=== PATIENT | female | born 1940 | race Caucasian/White ===

== ENCOUNTER 2017-02-08 00:57 | Inpatient (IN) | payer OTHER, MEDICAID ==
[2017-02-08 03:00] VITALS: BP 126/86
[2017-02-08] MEDS: D5-0.9%NS 1,000 ML IV SCH ×2 (07:08→17:24)
[2017-02-08] MEDS: INSULIN ASPART SLIDING SCALE 100 UNITS/ML UNIT SUBQ SCH ×2 (07:11→13:13)
[2017-02-08 07:28] LABS: ALKALINE PHOSPHATASE 434 U/L (34-104); ANION GAP 9.8 (7.0-16.0); BILIRUBIN,TOTAL 1.2 mg/dL (0.3-1.0); BUN - UREA NITROGEN 15 mg/dL (7-25); CARBON DIOXIDE 26.5 mEq/L (21.0-31.0); CHLORIDE 105 mEq/L (98-107); CREATININE - SERUM 0.6 mg/dL (0.6-1.2); GLUCOSE 133 mg/dL (70-105); POTASSIUM SERUM 3.3 mEq/L (3.5-5.1); SGOT 154 U/L (13-39); SGPT/ALT 258 U/L (7-52); SODIUM SERUM 138 mEq/L (136-145)
[2017-02-08 07:42] LABS: % BASOPHILS 0.2 % (0.0-2.0); % EOSINOPHILS 0.4 % (0.0-5.0); % LYMPHOCYTES 9.6 % (20.0-50.0); % MONOCYTES 11.4 % (2.0-10.0); % NEUTROPHILS 78.4 % (40.0-80.0); HEMATOCRIT 42.6 % (35.0-45.0); HEMOGLOBIN 14.5 gm/dL (11.7-16.1); MEAN CELL VOLUME 89.5 fl (81-100); MEAN CORPUSCULAR HEMOGLOBIN 30.4 pg (27.0-31.0); MEAN CORPUSCULAR HGB CONC 33.9 pg (28.0-36.0); MEAN PLATELET VOLUME 10.1 fl; NEUTROPHILE ABSOLUTE 13.1 Th/cmm (1.8-8.0); PLATELET COUNT 208 Th/cmm (150-400); RED BLOOD COUNT 4.76 Mil/cmm (3.80-5.20); RED CELL DISTRIBUTION WIDTH 12.6 % (11.5-20.0)
[2017-02-08 08:14] LABS: WHITE BLOOD COUNT 16.7 Th/cmm (4.8-10.8)
[2017-02-08] MEDS: Morphine Sulfate 2 mg/mL 1mL Syr IVP PRN ×2 (12:20→17:21)
[2017-02-08 12:45] LABS: URINE BILIRUBIN NEGATIVE (NEGATIVE); URINE BLOOD SMALL (NEGATIVE); URINE COLOR YELLOW; URINE GLUCOSE (UA) NEGATIVE (NEGATIVE); URINE KETONE 15 mg/dL (NEGATIVE); URINE PROTEIN 30 mg/dL (NEGATIVE); URINE UROBILINOGEN 0.2 E.U./dL (0.2 - 1.0)
[2017-02-08 12:48] LABS: URINE BACTERIA OCCASIONAL /hpf (NONE SEEN); URINE EPITHELIAL CELLS RARE /lpf (FEW); URINE RBC 0-2 /hpf (0-5)
--- NOTE | 2017-02-08 15:05 | General Progress Note ---
Subjective - Review of Systems Service Date: 02/08/17 Events since last encounter: 2 day history of upper abdominal pain and nausea and vomiting' Seen at [place], tests GB stones with dilated CBD LFT and amylase and lipase elevated GI consult noted MRCP in AM explained impression and possible surgery with patient and family pending tests keep strictly NPO Objective - Results Result Diagrams: 02/08/17 06:51 02/08/17 06:51 Recent Labs: Laboratory Last Values WBC 16.7 Th/cmm (4.8-10.8) H 02/08/17 06:51 RBC 4.76 Mil/cmm (3.80-5.20) 02/08/17 06:51 Hgb 14.5 gm/dL (11.7-16.1) 02/08/17 06:51 Hct 42.6 % (35.0-45.0) 02/08/17 06:51 MCV 89.5 fl (81-100) 02/08/17 06:51 MCH 30.4 pg (27.0-31.0) 02/08/17 06:51 MCHC Differential 33.9 pg (28.0-36.0) 02/08/17 06:51 RDW 12.6 % (11.5-20.0) 02/08/17 06:51 Plt Count 208 Th/cmm (150-400) 02/08/17 06:51 MPV 10.1 fl 02/08/17 06:51 Neutrophils % 78.4 % (40.0-80.0) 02/08/17 06:51 Lymphocytes % 9.6 % (20.0-50.0) L 02/08/17 06:51 Monocytes % 11.4 % (2.0-10.0) H 02/08/17 06:51 Eosinophils % 0.4 % (0.0-5.0) 02/08/17 06:51 Basophils % 0.2 % (0.0-2.0) 02/08/17 06:51 ESR 17 mm/hr (0-30) 02/08/17 06:51 Sodium 138 mEq/L (136-145) 02/08/17 06:51 Potassium 3.3 mEq/L (3.5-5.1) L 02/08/17 06:51 Chloride 105 mEq/L (98-107) 02/08/17 06:51 Carbon Dioxide 26.5 mEq/L (21.0-31.0) 02/08/17 06:51 Anion Gap 9.8 (7.0-16.0) 02/08/17 06:51 BUN 15 mg/dL (7-25) 02/08/17 06:51 Creatinine 0.6 mg/dL (0.6-1.2) 02/08/17 06:51 Est GFR ( Amer) TNP 02/08/17 06:51 Est GFR (Non-Af Amer) TNP 02/08/17 06:51 BUN/Creatinine Ratio 25.0 02/08/17 06:51 Glucose 133 mg/dL (70-105) H 02/08/17 06:51 POC Glucose 183 MG/DL (70 - 105) H 02/08/17 12:05 Hemoglobin A1c % 5.2 % (4.0-6.0) 02/08/17 06:51 Calcium 10.0 mg/dL (8.6-10.3) 02/08/17 06:51 Total Bilirubin 1.2 mg/dL (0.3-1.0) H 02/08/17 06:51 AST 154 U/L (13-39) H 02/08/17 06:51 ALT 258 U/L (7-52) H 02/08/17 06:51 Alkaline Phosphatase 434 U/L (34-104) H 02/08/17 06:51 C-Reactive Protein 3.6 mg/dL (0.0-0.9) H 02/08/17 06:51 Total Protein 7.3 gm/dL (6.0-8.3) 02/08/17 06:51 Albumin 3.7 gm/dL (3.7-5.3) 02/08/17 06:51 Globulin 3.6 gm/dL 02/08/17 06:51 Albumin/Globulin Ratio 1.0 (1.0-1.8) 02/08/17 06:51 Urine Source CATH 02/08/17 08:30 Urine Color YELLOW 02/08/17 08:30 Urine Clarity SL. CLOUDY (CLEAR) 02/08/17 08:30 Urine pH 6.0 02/08/17 08:30 Ur Specific [place] (1.005-1.030) 02/08/17 08:30 Urine Protein 30 mg/dL (NEGATIVE) H 02/08/17 08:30 Urine Glucose (UA) NEGATIVE mg/dL (NEGATIVE) 02/08/17 08:30 Urine Ketones 15 mg/dL (NEGATIVE) H 02/08/17 08:30 Urine Blood SMALL (NEGATIVE) H 02/08/17 08:30 Urine Nitrate NEGATIVE (NEGATIVE) 02/08/17 08:30 Urine Bilirubin NEGATIVE (NEGATIVE) 02/08/17 08:30 Urine Urobilinogen 0.2 E.U./dL (0.2 - 1.0) 02/08/17 08:30 Ur Leukocyte Esterase NEGATIVE (NEGATIVE) 02/08/17 08:30 Urine RBC 0-2 /hpf (0-5) 02/08/17 08:30 Urine WBC 6-10 /hpf (0-5) H 02/08/17 08:30 Ur Epithelial Cells RARE /lpf (FEW) 02/08/17 08:30 Urine Bacteria OCCASIONAL /hpf (NONE SEEN) 02/08/17 08:30 - Physical Exam Vitals and I&O: Vital Signs Temp 98.1 F 02/08/17 12:00 Pulse 107 02/08/17 12:00 Resp 18 02/08/17 12:00 BP 161/94 02/08/17 12:00 Pulse Ox 94 02/08/17 12:00 Intake & Output 02/07/17 02/08/17 02/08/17 17:59 06:59 18:59 Intake Total 200 Balance 200 Weight (lbs) Intake: Oral 200 Active Medications: Current Medications Acetaminophen (Tylenol 650mg Supp) 650 mg RC Q6H PRN PRN Reason: Mild Pain/Headache/T above 101 Stop: 04/09/17 06:24 Dextrose/Sodium Chloride (D5-0.9%Ns) 1,000 mls @ 100 mls/hr IV .Q10H AMEENA Stop: 04/09/17 06:29 Last Admin: 02/08/17 07:08 Dose: 100 mls/hr Lorazepam (Ativan) 1 mg IVP Q4H PRN; Protocol PRN Reason: Anxiety/Agitation Stop: 04/09/17 06:24 Morphine Sulfate (Morphine) 2 mg IVP Q4H PRN PRN Reason: Pain (Moderate) Stop: 04/09/17 06:24 Last Admin: 02/08/17 12:20 Dose: 2 mg Morphine Sulfate (Morphine) 4 mg IVP Q4H PRN PRN Reason: Severe Pain Stop: 04/09/17 06:24 Ondansetron HCl (Zofran) 4 mg IVP Q6H PRN PRN Reason: Nausea / Vomiting Stop: 04/09/17 06:24
--- NOTE | 2017-02-08 15:52 | History & Physical ---
CHIEF COMPLAINT: Abdominal pain. HISTORY OF PRESENT ILLNESS: The patient is a 76-year-old female who has been transferred from [facility] ER. The patient presented to the ER for complaint of right upper quadrant and mid epigastric abdominal pain for 2 days. The patient also has nausea and vomiting. PAST MEDICAL HISTORY: Negative. MEDICATIONS: See medication form. PAST SURGICAL HISTORY: Negative. ALLERGIES: No known allergies. SOCIAL HISTORY: No reports of smoking, drinking, or drug use. FAMILY HISTORY: Noncontributory. The patient had a CT done at [facility], which showed distended gallbladder with wall thickening, mild common bile duct dilation. Correlate for clinical signs of cholecystitis. No evidence of appendicitis. No evidence of diverticulitis, bowel obstruction or abscess. Renal sinus cyst and mild bladder wall thickening. PHYSICAL EXAMINATION: VITAL SIGNS ON ADMISSION: Temperature 98.5, pulse 96, blood pressure 126/86, respiratory rate 18, O2 sat 95% on room air. GENERAL: The patient is awake, alert, nontoxic in appearance. HEENT: Normocephalic, atraumatic. Extraocular muscle intact. Oropharynx is clear. NECK: Supple. No thyromegaly. No lymphadenopathy. CARDIOVASCULAR: S1, S2, no murmurs, rubs, gallops. RESPIRATORY: Clear. No wheezes or rhonchi. GASTROINTESTINAL: Soft, tender in the epigastric and right upper quadrant area. Nondistended. Positive bowel sounds. GENITOURINARY: No CVA tenderness. No suprapubic tenderness. BACK: No midline tenderness. EXTREMITIES: Equal pulses bilaterally. No cyanosis or edema. SKIN: Negative. PSYCHIATRIC: Negative. NEUROLOGIC: Cranial nerves 2-12 intact. Extraocular movements are intact. Sensation intact. Motor is intact. Bilateral muscle strength normal. Labs on admission are as follows: Hematology: WBC 16.7, hemoglobin 14.5, hematocrit 42.6 and platelet count 208 with 9% lymphocytes, 11% monocytes. Chemistry: Sodium 138, potassium 3.3, chloride 105, bicarbonate 26, anion gap 9, BUN 15, creatinine 0.6, GFR unavailable, glucose 133, hemoglobin A1c 5.2, calcium is 10, total bilirubin 1.2, AST is 154, ALT 58, alkaline phosphatase 434, total protein 7.3, albumin 3.7, globulin 3.6. Urinalysis shows 30 protein, 15 ketones, small blood, 6-10 wbc, occasional bacteria. MICROBIOLOGY: No new microbiology results. RADIOLOGY: No new radiology results. IMPRESSION: 1. Systemic inflammatory response syndrome. 2. Acute cholecystitis. 3. Possible choledocholithiasis. 4. Leukocytosis. 5. Hypokalemia. 6. Hyperglycemia. 7. Transaminitis. 8. Possible urinary tract infection. PLAN: The patient admitted to Med-Surg Unit at [facility]. GI consultation with Dr. Faustin and associates. General Surgery consultation with Dr. Braun. We will obtain Infectious Disease consultation regarding patient's leukocytosis. We will obtain further labs and consultation as needed. JOB# [id number] MTDTyler
--- NOTE | 2017-02-08 21:48 | Admit Criteria Form ---
Admit Criteria Forms - Admit Criteria Diagnosis: GALLBLADDER OR BILE DUCT INFLAMMATION OR STONE Clinical Indications for Admission to Inpatient Care ( Place 'X' for any and all applicable criteria): Admission is indicated for patients with ANY ONE of the following(1)(2)(3)(4)(5) : [X]I. Acute cholecystitis as indicated by ALL of the following: [X]a) Right upper quadrant pain, mass, or tenderness [X]b) Systemic signs of inflammation indicated by ANY ONE of the following: [ ]i) Fever [ ]ii) C-reactive protein level greater than 10 mg/L (95 nmol/L) [X]iii) White blood cell count greater than 10,000/mm3 (10 x109/L) or less than 4000/mm3 (4 x109/L) [ ]II. Inpatient admission required rather than observation care (Also use Gallbladder or Bile Duct Inflammation or Stone: Observation Care as appropriate) because of ANY ONE of the following: [ ]a) Common bile duct obstruction diagnosed [ ]b) Vomiting that is severe or persistent [ ]c) Severe pain requiring acute inpatient management [ ]d) Signs of intestinal obstruction or peritonitis [A] [ ]e) Severe electrolyte abnormalities requiring inpatient care [ ]f) Absent bowel sounds with complete ileus(8) [ ]g) Hemodynamic instability [ ]h) High fever or infection requiring inpatient admission as indicated by ANY ONE of the following (9): [ ]1) Appropriate outpatient or observation care antimicrobial Treatment. unavailable, not effective, or not feasible [ ]2) Temperature greater than 104.9 degrees F (40.5 degrees C) (oral) [ ]3) Temperature greater than 103.1 degrees F (39.5 degrees C) (oral) or less than 96.8 degrees F (36 degrees C) (rectal) that does not respond to all emergency treatment measures [ ]4) Documented bacteremia [ ]i) IV fluid to replace significant ongoing losses (greater than 3 L/m2 per day) [ ]j) Percutaneous or open drainage (eg, abscess, biliary tract) procedures [ ]k) Immediate inpatient surgery [ ]l) Other condition, treatment or monitoring requiring inpatient admission [ ]III. Acute cholangitis as indicated by ALL of the following(9)(10): [ ]a) Systemic signs of inflammation indicated by ANY ONE of the following: [ ]i) Fever [ ]ii) C-reactive protein level greater than 10 mg/L (95 nmol /L) [ ]iii) White blood cell count greater than 10,000/mm3 (10 x109/L) or less than 4000/mm3 (4 x109/L) [ ]b) Evidence of common bile duct disease indicated by ANY ONE of the following: [ ]i) Total serum bilirubin level greater than or equal to 2 mg/dL (34 micromoles/L) [ ]ii) Liver function test (alkaline phosphatase (ALP), r- glutamyltransferase (GGT), aspartate aminotransferase (AST), or alanine aminotransferase (ALT)) greater than 1.5 times the upper limit of normal[B] [ ]iii) Hepatobiliary imaging showing biliary dilatation or evidence of etiology (eg, stricture, stone, previously placed stent) Extended stay beyond goal length of stay may be needed for (1)(2)): [ ]a) Bacteremia or Hemodynamic instability [ ]b) Cholecystectomy [ ]c) Other surgical procedure(24) [ ]d) Percutaneous or endoscopic ultrasound-guided cholecystostomy The original [facility] [employer] content created by [facility] [employer] has been revised. The portions of the content which have been revised are identified through the use of italic text or in bold, and [facility] has neither reviewed nor approved the modified material. All other unmodified content is copyright [facility]. Please see references footnoted in the original [facility] edition 2016 Admit Criteria Met?: Yes
[2017-02-09] MEDS: Morphine Sulfate 2 mg/mL 1mL Syr IVP PRN ×3 (00:12→21:34)
--- NOTE | 2017-02-09 00:51 | Consultation ---
REASON FOR CONSULT: Abdominal pain, possible cholecystitis, abnormal LFTs. HISTORY OF PRESENT ILLNESS: This is a 76-year-old female without significant past medical history, who presents with complaints of pain in the epigastric and right upper quadrant region for the past several days with associated nausea and vomiting. The patient was initially evaluated at [facility] [place]. The patient at that time was found to have elevation of her LFTs. She also had imaging, underwent ultrasound and CT showing multiple stones in the gallbladder and a distended gallbladder with wall thickening suggestive of cholecystitis. The patient also had ____ of her common bile duct to 7.35 mm. PAST MEDICAL HISTORY: As per HPI. PAST SURGICAL HISTORY: As per HPI. SOCIAL HISTORY: The patient denies any tobacco, alcohol or drugs. FAMILY HISTORY: No family history of GI malignancies. MEDICATIONS: Please see medication reconciliation form. REVIEW OF SYSTEMS: As per HPI. PHYSICAL EXAMINATION: VITAL SIGNS: Temperature is 97.5, pulse 96, respirations 18, blood pressure 126/86. GENERAL: No acute distress. CARDIOVASCULAR: Regular ____ rhythm. ABDOMEN: Soft. LABORATORY DATA: White count 16.7, hemoglobin 14.5, platelets are 208. Total bilirubin 1.2, AST is 154, ALT is 258. ASSESSMENT AND PLAN: A 76-year-old female presenting with epigastric right upper quadrant pain. The patient likely has cholecystitis with possible choledocholithiasis. We will obtain MRCP to further evaluate for any common bile duct stone. If this is present, would need an ERCP for further treatment. The patient should also be seen by Surgery for eventual cholecystectomy as well. Thank you for this consult and allowing us to participate in the care of this patient. JOB# [id number]
[2017-02-09] MEDS: D5-0.9%NS 1,000 ML IV SCH ×2 (02:16→20:48)
[2017-02-09 05:59] LABS: HEMATOCRIT 39.2 % (35.0-45.0); HEMOGLOBIN 13.3 gm/dL (11.7-16.1); MEAN CELL VOLUME 89.9 fl (81-100); MEAN CORPUSCULAR HEMOGLOBIN 30.5 pg (27.0-31.0); MEAN PLATELET VOLUME 9.7 fl; PLATELET COUNT 206 Th/cmm (150-400); RED BLOOD COUNT 4.36 Mil/cmm (3.80-5.20); RED CELL DISTRIBUTION WIDTH 12.6 % (11.5-20.0)
[2017-02-09 06:05] LABS: WHITE BLOOD COUNT 12.5 Th/cmm (4.8-10.8)
[2017-02-09 06:13] LABS: ALKALINE PHOSPHATASE 396 U/L (34-104); ANION GAP 8.2 (7.0-16.0); BILIRUBIN,TOTAL 4.2 mg/dL (0.3-1.0); BUN - UREA NITROGEN 9 mg/dL (7-25); BUN/CREATININE RATIO 22.5; CALCIUM SERUM 9.7 mg/dL (8.6-10.3); CARBON DIOXIDE 28.7 mEq/L (21.0-31.0); CHLORIDE 103 mEq/L (98-107); CREATININE - SERUM 0.4 mg/dL (0.6-1.2); GLUCOSE 153 mg/dL (70-105); SGOT 229 U/L (13-39); SGPT/ALT 292 U/L (7-52); SODIUM SERUM 137 mEq/L (136-145)
[2017-02-09 06:17] LABS: POTASSIUM SERUM 2.9 mEq/L (3.5-5.1)
--- NOTE | 2017-02-09 07:53 | Consultation ---
REFERRING PHYSICIAN: Monty Gillette M.D REASON FOR CONSULTATION: Sepsis, acute cholecystitis. HISTORY OF PRESENT ILLNESS: The patient is a 76-year-old female with no significant past medical history, presented to [facility] ER for nausea and epigastric abdominal pain for last 2 days. On initial evaluation, the patient's temperature was 99.3 degrees Fahrenheit and WBC count was 16,300. CT scan of the abdomen and pelvis suggested distended gallbladder with wall thickening and common bile duct dilatation, so the patient was diagnosed with sepsis, cholelithiasis, cholecystitis. So the patient was transferred to [facility] for insurance purposes. PAST MEDICAL HISTORY: None significant. ALLERGIES: NKDA. MEDICATIONS: See medication reconciliation sheet. Antibiotic núñez, the patient is currently not on antibiotic. SOCIAL HISTORY: The patient lives at home. No history of smoking, alcohol, or drug use. FAMILY HISTORY: Noncontributory. REVIEW OF SYSTEMS: GENERAL: The patient has no fever, no chills, has no generalized distress. HEENT: No diplopia. No photophobia. No sore throat. RESPIRATORY: No cough. No shortness of breath. No wheezing. CARDIOVASCULAR: No chest pain or palpitation. GASTROINTESTINAL: The patient has nausea and vomiting associated with epigastric abdominal pain yesterday, which has resolved now. No diarrhea. No constipation. MUSCULOSKELETAL: No muscle pain or joint pain. GENITOURINARY: No dysuria. No hematuria. CENTRAL NERVOUS SYSTEM: No headache. No dizziness. No focal weakness. PHYSICAL EXAMINATION: VITAL SIGNS: Shows temperature is 98.1, pulse is 107, respirations 18, blood pressure 161/94. GENERAL: The patient is comfortable, lying in the bed, not in acute distress. HEENT: Head is normocephalic, atraumatic. Oral cavity moist. [place] tongue. Eyes: No pallor, no icterus. PERRLA, EOMI. NECK: Supple. No JVD. No carotid bruit. Trachea in midline. HEART: S1 and S2 within normal limits. Regular rhythm. CHEST: Bilateral vesicular breath sounds. No crackles or wheezing. ABDOMEN: Soft, nontender, nondistended. Bowel sounds present. EXTREMITIES: No cyanosis. No clubbing. No edema. NEUROLOGIC: Alert, awake, oriented x 3. No focal deficits. LABORATORY DATA: Current labs shows WBC count 16,700, hemoglobin 14.5, hematocrit 42.6, platelets are 208,000, neutrophils 78.4%. Sodium is 138, potassium 3.3, chloride 105, bicarbonate is 26, BUN is 15, creatinine 0.6, glucose is 133. Total bilirubin is 1.2. AST is 154, ALT is 258, and alkaline phosphatase 436. Urinalysis shows negative nitrite, negative leukoesterase. Abdominal ultrasound at [place] revealed gallbladder stones with gallbladder containing multiple calculi, gallbladder wall thickened. CT scan of the abdomen and pelvis revealed suspected cholecystitis and choledocholithiasis. IMPRESSION: 1. Leukocytosis, suspect sepsis. 2. Acute cholecystitis and choledocholithiasis. RECOMMENDATIONS: We will start the patient on Zosyn. GI and Surgery consult are following. Discussed with the family. JOB# [id number] [email or web address]
[2017-02-09] MEDS: KCL 20mEq/100mL Premix 20 MEQ/100 ML PIGGYBACK IV SCH ×2 (07:54→10:19)
--- NOTE | 2017-02-09 09:39 | Diagnostic Imaging Report ---
CHEST X-RAY: AP view INDICATION: pneumonia COMPARISON: None FINDINGS: Chronic changes are seen with no focal consolidation or effusions. Heart size is normal. Tortuous aorta is noted with atherosclerosis. Postsurgical changes of the right humerus are noted. Old fourth right rib fracture is noted. IMPRESSION: Chronic lung changes with no focal consolidation identified. Tortuous aorta with atherosclerotic vascular disease.
[2017-02-09 09:46] LABS: NEUTROPHILS 79 % (40-80); PLATELET ESTIMATE ADEQUATE (NORMAL); PLATELET MORPHOLOGY NORMAL (NORMAL); TOTAL CELLS COUNTED 100
[2017-02-09] MEDS: Morphine Sulfate 4 mg/mL 1mL Syr IVP PRN (11:34)
--- NOTE | 2017-02-09 12:52 | General Progress Note ---
Subjective - Review of Systems Service Date: 02/09/17 Events since last encounter: rising LFT for MRCP today Objective - Results Result Diagrams: 02/09/17 05:45 02/09/17 05:45 Recent Labs: Laboratory Last Values WBC 12.5 Th/cmm (4.8-10.8) H D 02/09/17 05:45 RBC 4.36 Mil/cmm (3.80-5.20) 02/09/17 05:45 Hgb 13.3 gm/dL (11.7-16.1) 02/09/17 05:45 Hct 39.2 % (35.0-45.0) 02/09/17 05:45 MCV 89.9 fl (81-100) 02/09/17 05:45 MCH 30.5 pg (27.0-31.0) 02/09/17 05:45 MCHC Differential 34.0 pg (28.0-36.0) 02/09/17 05:45 RDW 12.6 % (11.5-20.0) 02/09/17 05:45 Plt Count 206 Th/cmm (150-400) 02/09/17 05:45 MPV 9.7 fl 02/09/17 05:45 Neutrophils % 78.4 % (40.0-80.0) 02/08/17 06:51 Lymphocytes % 9.6 % (20.0-50.0) L 02/08/17 06:51 Monocytes % 11.4 % (2.0-10.0) H 02/08/17 06:51 Eosinophils % 0.4 % (0.0-5.0) 02/08/17 06:51 Basophils % 0.2 % (0.0-2.0) 02/08/17 06:51 Neutrophils (Manual) 79 % (40-80) 02/09/17 05:45 Lymphocytes 8 % (20-50) L 02/09/17 05:45 Monocytes 13 % (2-10) H 02/09/17 05:45 Platelet Estimate ADEQUATE (NORMAL) 02/09/17 05:45 Platelet Morphology NORMAL (NORMAL) 02/09/17 05:45 RBC Morph Micro Appear NORMAL (NORMAL) 02/09/17 05:45 ESR 41 mm/hr (0-30) H 02/09/17 05:45 Sodium 137 mEq/L (136-145) 02/09/17 05:45 Potassium 2.9 mEq/L (3.5-5.1) L* 02/09/17 05:45 Chloride 103 mEq/L (98-107) 02/09/17 05:45 Carbon Dioxide 28.7 mEq/L (21.0-31.0) 02/09/17 05:45 Anion Gap 8.2 (7.0-16.0) 02/09/17 05:45 BUN 9 mg/dL (7-25) 02/09/17 05:45 Creatinine 0.4 mg/dL (0.6-1.2) L 02/09/17 05:45 Est GFR ( Amer) TNP 02/09/17 05:45 Est GFR (Non-Af Amer) TNP 02/09/17 05:45 BUN/Creatinine Ratio 22.5 02/09/17 05:45 Glucose 153 mg/dL (70-105) H 02/09/17 05:45 POC Glucose 158 MG/DL (70 - 105) H 02/08/17 21:26 Hemoglobin A1c % 5.2 % (4.0-6.0) 02/08/17 06:51 Calcium 9.7 mg/dL (8.6-10.3) 02/09/17 05:45 Total Bilirubin 4.2 mg/dL (0.3-1.0) H 02/09/17 05:45 AST 229 U/L (13-39) H 02/09/17 05:45 ALT 292 U/L (7-52) H 02/09/17 05:45 Alkaline Phosphatase 396 U/L (34-104) H 02/09/17 05:45 C-Reactive Protein 8.2 mg/dL (0.0-0.9) H 02/09/17 05:45 Total Protein 6.5 gm/dL (6.0-8.3) 02/09/17 05:45 Albumin 3.2 gm/dL (3.7-5.3) L 02/09/17 05:45 Globulin 3.3 gm/dL 02/09/17 05:45 Albumin/Globulin Ratio 1.0 (1.0-1.8) 02/09/17 05:45 Urine Source CATH 02/08/17 08:30 Urine Color YELLOW 02/08/17 08:30 Urine Clarity SL. CLOUDY (CLEAR) 02/08/17 08:30 Urine pH 6.0 02/08/17 08:30 Ur Specific [place] (1.005-1.030) 02/08/17 08:30 Urine Protein 30 mg/dL (NEGATIVE) H 02/08/17 08:30 Urine Glucose (UA) NEGATIVE mg/dL (NEGATIVE) 02/08/17 08:30 Urine Ketones 15 mg/dL (NEGATIVE) H 02/08/17 08:30 Urine Blood SMALL (NEGATIVE) H 02/08/17 08:30 Urine Nitrate NEGATIVE (NEGATIVE) 02/08/17 08:30 Urine Bilirubin NEGATIVE (NEGATIVE) 02/08/17 08:30 Urine Urobilinogen 0.2 E.U./dL (0.2 - 1.0) 02/08/17 08:30 Ur Leukocyte Esterase NEGATIVE (NEGATIVE) 02/08/17 08:30 Urine RBC 0-2 /hpf (0-5) 02/08/17 08:30 Urine WBC 6-10 /hpf (0-5) H 02/08/17 08:30 Ur Epithelial Cells RARE /lpf (FEW) 02/08/17 08:30 Urine Bacteria OCCASIONAL /hpf (NONE SEEN) 02/08/17 08:30 - Physical Exam Vitals and I&O: Vital Signs Temp 98.3 F 02/09/17 12:39 Pulse 96 02/09/17 12:39 Resp 18 02/09/17 12:39 BP 142/97 02/09/17 12:39 Pulse Ox 97 02/09/17 12:39 Intake & Output 02/08/17 02/09/17 02/09/17 18:59 06:59 18:59 Intake Total 1200 986.667 100 Balance 1200 986.667 100 Intake: Intake, IV Amount 1000 986.667 100 D5-0.9%Ns 1,000 ml @ 100 1000 886.667 mls/hr IV .Q10H AMEENA Rx#: [id number] KCL 20mEq/100mL Premix 20 100 meq In 100 ml @ 50 mls/ hr IV Q2H AMEENA Rx#: [id number] Piperacillin Sodium/ 100 Tazobact 4.5 gm In Sodium Chloride 0.9% 100 ml @ 100 mls/hr IV Q8HR COUNT INCLUDES THE [facility] Rx #:[id number] Oral 200 Active Medications: Current Medications Acetaminophen (Tylenol 650mg Supp) 650 mg RC Q6H PRN PRN Reason: Mild Pain/Headache/T above 101 Stop: 04/09/17 06:24 Dextrose/Sodium Chloride (D5-0.9%Ns) 1,000 mls @ 100 mls/hr IV .Q10H COUNT INCLUDES THE [facility] Stop: 04/09/17 06:29 Last Admin: 02/09/17 02:16 Dose: 100 mls/hr Piperacillin Sod/Tazobactam (Sod 4.5 gm/ Sodium Chloride) 100 mls @ 100 mls/hr IV Q8HR COUNT INCLUDES THE [facility] Stop: 04/09/17 20:59 Last Admin: 02/09/17 12:27 Dose: 100 mls/hr Lorazepam (Ativan) 1 mg IVP Q4H PRN; Protocol PRN Reason: Anxiety/Agitation Stop: 04/09/17 06:24 Last Admin: 02/09/17 12:28 Dose: 1 mg Morphine Sulfate (Morphine) 2 mg IVP Q4H PRN PRN Reason: Pain (Moderate) Stop: 04/09/17 06:24 Last Admin: 02/09/17 07:54 Dose: 2 mg Morphine Sulfate (Morphine) 4 mg IVP Q4H PRN PRN Reason: Severe Pain Stop: 04/09/17 06:24 Last Admin: 02/09/17 11:34 Dose: 4 mg Ondansetron HCl (Zofran) 4 mg IVP Q6H PRN PRN Reason: Nausea / Vomiting Stop: 04/09/17 06:24
--- NOTE | 2017-02-09 14:04 | Infectious Disease Prog Note ---
Infectious Disease Subjective - Review of Systems Service Date: 02/09/17 Subjective: There is no new change, there is no fever. Denies any abdominal pain. Infectious Disease Objective - Results Result Diagrams: 02/09/17 05:45 02/09/17 05:45 Recent Labs: Laboratory Last Values WBC 12.5 Th/cmm (4.8-10.8) H D 02/09/17 05:45 RBC 4.36 Mil/cmm (3.80-5.20) 02/09/17 05:45 Hgb 13.3 gm/dL (11.7-16.1) 02/09/17 05:45 Hct 39.2 % (35.0-45.0) 02/09/17 05:45 MCV 89.9 fl (81-100) 02/09/17 05:45 MCH 30.5 pg (27.0-31.0) 02/09/17 05:45 MCHC Differential 34.0 pg (28.0-36.0) 02/09/17 05:45 RDW 12.6 % (11.5-20.0) 02/09/17 05:45 Plt Count 206 Th/cmm (150-400) 02/09/17 05:45 MPV 9.7 fl 02/09/17 05:45 Neutrophils % 78.4 % (40.0-80.0) 02/08/17 06:51 Lymphocytes % 9.6 % (20.0-50.0) L 02/08/17 06:51 Monocytes % 11.4 % (2.0-10.0) H 02/08/17 06:51 Eosinophils % 0.4 % (0.0-5.0) 02/08/17 06:51 Basophils % 0.2 % (0.0-2.0) 02/08/17 06:51 Neutrophils (Manual) 79 % (40-80) 02/09/17 05:45 Lymphocytes 8 % (20-50) L 02/09/17 05:45 Monocytes 13 % (2-10) H 02/09/17 05:45 Platelet Estimate ADEQUATE (NORMAL) 02/09/17 05:45 Platelet Morphology NORMAL (NORMAL) 02/09/17 05:45 RBC Morph Micro Appear NORMAL (NORMAL) 02/09/17 05:45 ESR 41 mm/hr (0-30) H 02/09/17 05:45 Sodium 137 mEq/L (136-145) 02/09/17 05:45 Potassium 2.9 mEq/L (3.5-5.1) L* 02/09/17 05:45 Chloride 103 mEq/L (98-107) 02/09/17 05:45 Carbon Dioxide 28.7 mEq/L (21.0-31.0) 02/09/17 05:45 Anion Gap 8.2 (7.0-16.0) 02/09/17 05:45 BUN 9 mg/dL (7-25) 02/09/17 05:45 Creatinine 0.4 mg/dL (0.6-1.2) L 02/09/17 05:45 Est GFR ( Amer) TNP 02/09/17 05:45 Est GFR (Non-Af Amer) TNP 02/09/17 05:45 BUN/Creatinine Ratio 22.5 02/09/17 05:45 Glucose 153 mg/dL (70-105) H 02/09/17 05:45 POC Glucose 158 MG/DL (70 - 105) H 02/08/17 21:26 Hemoglobin A1c % 5.2 % (4.0-6.0) 02/08/17 06:51 Calcium 9.7 mg/dL (8.6-10.3) 02/09/17 05:45 Total Bilirubin 4.2 mg/dL (0.3-1.0) H 02/09/17 05:45 AST 229 U/L (13-39) H 02/09/17 05:45 ALT 292 U/L (7-52) H 02/09/17 05:45 Alkaline Phosphatase 396 U/L (34-104) H 02/09/17 05:45 C-Reactive Protein 8.2 mg/dL (0.0-0.9) H 02/09/17 05:45 Total Protein 6.5 gm/dL (6.0-8.3) 02/09/17 05:45 Albumin 3.2 gm/dL (3.7-5.3) L 02/09/17 05:45 Globulin 3.3 gm/dL 02/09/17 05:45 Albumin/Globulin Ratio 1.0 (1.0-1.8) 02/09/17 05:45 Urine Source CATH 02/08/17 08:30 Urine Color YELLOW 02/08/17 08:30 Urine Clarity SL. CLOUDY (CLEAR) 02/08/17 08:30 Urine pH 6.0 02/08/17 08:30 Ur Specific [place] (1.005-1.030) 02/08/17 08:30 Urine Protein 30 mg/dL (NEGATIVE) H 02/08/17 08:30 Urine Glucose (UA) NEGATIVE mg/dL (NEGATIVE) 02/08/17 08:30 Urine Ketones 15 mg/dL (NEGATIVE) H 02/08/17 08:30 Urine Blood SMALL (NEGATIVE) H 02/08/17 08:30 Urine Nitrate NEGATIVE (NEGATIVE) 02/08/17 08:30 Urine Bilirubin NEGATIVE (NEGATIVE) 02/08/17 08:30 Urine Urobilinogen 0.2 E.U./dL (0.2 - 1.0) 02/08/17 08:30 Ur Leukocyte Esterase NEGATIVE (NEGATIVE) 02/08/17 08:30 Urine RBC 0-2 /hpf (0-5) 02/08/17 08:30 Urine WBC 6-10 /hpf (0-5) H 02/08/17 08:30 Ur Epithelial Cells RARE /lpf (FEW) 02/08/17 08:30 Urine Bacteria OCCASIONAL /hpf (NONE SEEN) 02/08/17 08:30 - Physical Exam Vitals and I&O: Vital Signs Temp 98.3 F 02/09/17 12:39 Pulse 96 02/09/17 12:39 Resp 18 02/09/17 12:39 BP 142/97 02/09/17 12:39 Pulse Ox 97 02/09/17 12:39 Intake & Output 02/08/17 02/09/17 02/09/17 18:59 06:59 18:59 Intake Total 1200 986.667 100 Balance 1200 986.667 100 Intake: Intake, IV Amount 1000 986.667 100 D5-0.9%Ns 1,000 ml @ 100 1000 886.667 mls/hr IV .Q10H [facility] Rx#: [id number] KCL 20mEq/100mL Premix 20 100 meq In 100 ml @ 50 mls/ hr IV Q2H [facility] Rx#: [id number] Piperacillin Sodium/ 100 Tazobact 4.5 gm In Sodium Chloride 0.9% 100 ml @ 100 mls/hr IV Q8HR [facility] Rx #:[id number] Oral 200 Active Medications: Current Medications Acetaminophen (Tylenol 650mg Supp) 650 mg RC Q6H PRN PRN Reason: Mild Pain/Headache/T above 101 Stop: 04/09/17 06:24 Dextrose/Sodium Chloride (D5-0.9%Ns) 1,000 mls @ 100 mls/hr IV .Q10H [facility] Stop: 04/09/17 06:29 Last Admin: 02/09/17 02:16 Dose: 100 mls/hr Piperacillin Sod/Tazobactam (Sod 4.5 gm/ Sodium Chloride) 100 mls @ 100 mls/hr IV Q8HR [facility] Stop: 04/09/17 20:59 Last Admin: 02/09/17 12:27 Dose: 100 mls/hr Lorazepam (Ativan) 1 mg IVP Q4H PRN; Protocol PRN Reason: Anxiety/Agitation Stop: 04/09/17 06:24 Last Admin: 02/09/17 12:28 Dose: 1 mg Morphine Sulfate (Morphine) 2 mg IVP Q4H PRN PRN Reason: Pain (Moderate) Stop: 04/09/17 06:24 Last Admin: 02/09/17 07:54 Dose: 2 mg Morphine Sulfate (Morphine) 4 mg IVP Q4H PRN PRN Reason: Severe Pain Stop: 04/09/17 06:24 Last Admin: 02/09/17 11:34 Dose: 4 mg Ondansetron HCl (Zofran) 4 mg IVP Q6H PRN PRN Reason: Nausea / Vomiting Stop: 04/09/17 06:24 General: no acute distress, well developed, well nourished HEENT: atraumatic, normocephalic, PERRLA, EOMI Neck: supple Cardiovascular: S1S2, regular Lungs: clear to auscultation bilaterally, clear to percussion Abdomen: soft, no tender, no distended, no mass Extremities: no cyanosis, no clubbing, no edema Neurological: awake, alert, oriented Skin: intact Infectious Disease Assmt/Plan - Assessment Assessment: 1. Cholecytitis. acute. 2. Leukocytosis, sepsis. Improving. 3. ILD. - Plan Plan: will continue zosyn. Patient is for MRCP.
[2017-02-09] MEDS ORDERED: Labetalol 5 mg/mL 20 mL Vial IVP ONE (18:00)
[2017-02-10 07:04] LABS: ALB/GLOB RATIO 0.9 (1.0-1.8); ALKALINE PHOSPHATASE 366 U/L (34-104); AMYLASE SERUM 534 U/L (29-103); ANION GAP 8.3 (7.0-16.0); BUN - UREA NITROGEN 11 mg/dL (7-25); BUN/CREATININE RATIO 27.5; CALCIUM SERUM 9.9 mg/dL (8.6-10.3); CARBON DIOXIDE 30.5 mEq/L (21.0-31.0); CHLORIDE 106 mEq/L (98-107); CREATININE - SERUM 0.4 mg/dL (0.6-1.2); GLUCOSE 121 mg/dL (70-105); LIPASE 444 U/L (11-82); MAGNESIUM 1.7 mg/dL (1.9-2.7); SGOT 145 U/L (13-39); SGPT/ALT 242 U/L (7-52); SODIUM SERUM 142 mEq/L (136-145)
[2017-02-10 07:23] LABS: POTASSIUM SERUM 2.8 mEq/L (3.5-5.1)
[2017-02-10 07:24] LABS: % BASOPHILS 0.7 % (0.0-2.0); % EOSINOPHILS 0.5 % (0.0-5.0); % MONOCYTES 11.2 % (2.0-10.0); % NEUTROPHILS 76.6 % (40.0-80.0); HEMATOCRIT 36.6 % (35.0-45.0); MEAN CORPUSCULAR HEMOGLOBIN 31.6 pg (27.0-31.0); MEAN CORPUSCULAR HGB CONC 35.4 pg (28.0-36.0); MEAN PLATELET VOLUME 10.5 fl; NEUTROPHILE ABSOLUTE 7.3 Th/cmm (1.8-8.0); PLATELET COUNT 197 Th/cmm (150-400); RED BLOOD COUNT 4.11 Mil/cmm (3.80-5.20); RED CELL DISTRIBUTION WIDTH 12.4 % (11.5-20.0)
[2017-02-10 08:17] LABS: WHITE BLOOD COUNT 9.6 Th/cmm (4.8-10.8)
[2017-02-10] MEDS ORDERED: Potassium Chloride 40 MEQ, Lidocaine 1% 20mL Vial 25 MG in Sodium Chloride 0.9% 250 ML IV ONE (09:00)
[2017-02-10] MEDS: D5-0.9%NS 1,000 ML IV SCH (09:16)
--- NOTE | 2017-02-10 09:17 | Diagnostic Imaging Report ---
MRCP History: Abdominal pain, assess for common bile duct stone Comparison: None Technique: Multiplanar T1 and T2-weighted images including heavily T2-weighted MRCP images of the abdomen were obtained without IV contrast Findings: Exam is limited due to motion. No evidence of focal hepatic lesions. Small amount of free fluid is noted. A markedly distended gallbladder is seen with numerous gallstones and probable sludge. Generalized prominence of the common bile duct is noted measuring up to 1.1 cm with distal tapering. There are small areas of low signal intensity along the distal common bile duct measuring up to 2-3 mm possibly representing small common bile duct stones. Multiple bilateral renal cysts are seen. Bilateral renal parapelvic cysts versus moderate to severe bilateral hydronephrosis is noted. Evaluation of pancreas is limited on this examination. The adrenal glands also poorly evaluated on this examination. Spinal compression deformities are noted. IMPRESSION: Limited exam due to motion. Distended gallbladder with numerous stones in likely diffuse gallbladder sludge. There is also dilatation of the common bile duct measuring up to 1.1 cm with distal tapering. Small 2 to 3 mm stones of the distal common bile duct cannot be excluded. Small amount of free fluid including small amount of free fluid adjacent to gallbladder. The significance of this finding should be correlated clinically. Bilateral renal cysts with possible parapelvic cysts versus moderate to severe bilateral hydronephrosis. CT with IV contrast would provide for additional detail and assessment. Spinal compression deformities. Consider dedicated thoracic and lumbar spine x-rays.
[2017-02-10] MEDS: Morphine Sulfate 4 mg/mL 1mL Syr IVP PRN ×3 (09:20→22:14)
--- NOTE | 2017-02-10 11:06 | Infectious Disease Prog Note ---
Infectious Disease Subjective - Review of Systems Service Date: 02/10/17 Subjective: There is no new change, there is no fever. Denies any abdominal pain. Infectious Disease Objective - Results Result Diagrams: 02/10/17 06:15 02/10/17 06:15 Recent Labs: Laboratory Last Values WBC 9.6 Th/cmm (4.8-10.8) D 02/10/17 06:15 RBC 4.11 Mil/cmm (3.80-5.20) 02/10/17 06:15 Hgb 13.0 gm/dL (11.7-16.1) 02/10/17 06:15 Hct 36.6 % (35.0-45.0) 02/10/17 06:15 MCV 89.0 fl (81-100) 02/10/17 06:15 MCH 31.6 pg (27.0-31.0) H 02/10/17 06:15 MCHC Differential 35.4 pg (28.0-36.0) 02/10/17 06:15 RDW 12.4 % (11.5-20.0) 02/10/17 06:15 Plt Count 197 Th/cmm (150-400) 02/10/17 06:15 MPV 10.5 fl 02/10/17 06:15 Neutrophils % 76.6 % (40.0-80.0) 02/10/17 06:15 Lymphocytes % 11.0 % (20.0-50.0) L 02/10/17 06:15 Monocytes % 11.2 % (2.0-10.0) H 02/10/17 06:15 Eosinophils % 0.5 % (0.0-5.0) 02/10/17 06:15 Basophils % 0.7 % (0.0-2.0) 02/10/17 06:15 Neutrophils (Manual) 79 % (40-80) 02/09/17 05:45 Lymphocytes 8 % (20-50) L 02/09/17 05:45 Monocytes 13 % (2-10) H 02/09/17 05:45 Platelet Estimate ADEQUATE (NORMAL) 02/09/17 05:45 Platelet Morphology NORMAL (NORMAL) 02/09/17 05:45 RBC Morph Micro Appear NORMAL (NORMAL) 02/09/17 05:45 ESR 40 mm/hr (0-30) H 02/10/17 06:15 Sodium 142 mEq/L (136-145) 02/10/17 06:15 Potassium 2.8 mEq/L (3.5-5.1) L* 02/10/17 06:15 Chloride 106 mEq/L (98-107) 02/10/17 06:15 Carbon Dioxide 30.5 mEq/L (21.0-31.0) 02/10/17 06:15 Anion Gap 8.3 (7.0-16.0) 02/10/17 06:15 BUN 11 mg/dL (7-25) 02/10/17 06:15 Creatinine 0.4 mg/dL (0.6-1.2) L 02/10/17 06:15 Est GFR ( Amer) TNP 02/10/17 06:15 Est GFR (Non-Af Amer) TNP 02/10/17 06:15 BUN/Creatinine Ratio 27.5 02/10/17 06:15 Glucose 121 mg/dL (70-105) H 02/10/17 06:15 POC Glucose 158 MG/DL (70 - 105) H 02/08/17 21:26 Hemoglobin A1c % 5.2 % (4.0-6.0) 02/08/17 06:51 Calcium 9.9 mg/dL (8.6-10.3) 02/10/17 06:15 Magnesium 1.7 mg/dL (1.9-2.7) L 02/10/17 06:15 Total Bilirubin 6.0 mg/dL (0.3-1.0) H 02/10/17 06:15 AST 145 U/L (13-39) H 02/10/17 06:15 ALT 242 U/L (7-52) H 02/10/17 06:15 Alkaline Phosphatase 366 U/L (34-104) H 02/10/17 06:15 C-Reactive Protein 8.2 mg/dL (0.0-0.9) H 02/09/17 05:45 Total Protein 5.9 gm/dL (6.0-8.3) L 02/10/17 06:15 Albumin 2.8 gm/dL (3.7-5.3) L 02/10/17 06:15 Globulin 3.1 gm/dL 02/10/17 06:15 Albumin/Globulin Ratio 0.9 (1.0-1.8) L 02/10/17 06:15 Amylase 534 U/L (29-103) H 02/10/17 06:15 Lipase 444 U/L (11-82) H 02/10/17 06:15 TSH 0.92 uIU/ml (0.34-5.60) 02/10/17 06:15 Urine Source CATH 02/08/17 08:30 Urine Color YELLOW 02/08/17 08:30 Urine Clarity SL. CLOUDY (CLEAR) 02/08/17 08:30 Urine pH 6.0 02/08/17 08:30 Ur Specific [place] (1.005-1.030) 02/08/17 08:30 Urine Protein 30 mg/dL (NEGATIVE) H 02/08/17 08:30 Urine Glucose (UA) NEGATIVE mg/dL (NEGATIVE) 02/08/17 08:30 Urine Ketones 15 mg/dL (NEGATIVE) H 02/08/17 08:30 Urine Blood SMALL (NEGATIVE) H 02/08/17 08:30 Urine Nitrate NEGATIVE (NEGATIVE) 02/08/17 08:30 Urine Bilirubin NEGATIVE (NEGATIVE) 02/08/17 08:30 Urine Urobilinogen 0.2 E.U./dL (0.2 - 1.0) 02/08/17 08:30 Ur Leukocyte Esterase NEGATIVE (NEGATIVE) 02/08/17 08:30 Urine RBC 0-2 /hpf (0-5) 02/08/17 08:30 Urine WBC 6-10 /hpf (0-5) H 02/08/17 08:30 Ur Epithelial Cells RARE /lpf (FEW) 02/08/17 08:30 Urine Bacteria OCCASIONAL /hpf (NONE SEEN) 02/08/17 08:30 - Physical Exam Vitals and I&O: Vital Signs Temp 97.0 F 02/10/17 08:34 Pulse 107 02/10/17 08:34 Resp 18 02/10/17 08:34 BP 150/91 02/10/17 08:34 Pulse Ox 95 02/10/17 08:34 Intake & Output 02/09/17 02/10/17 02/10/17 18:59 06:59 18:59 Intake Total 1200 1000 Balance 1200 1000 Intake: Intake, IV Amount 1200 1000 D5-0.9%Ns 1,000 ml @ 100 1000 1000 mls/hr IV .Q10H [facility] Rx#: [id number] KCL 20mEq/100mL Premix 20 100 meq In 100 ml @ 50 mls/ hr IV Q2H [facility] Rx#: [id number] Piperacillin Sodium/ 100 Tazobact 4.5 gm In Sodium Chloride 0.9% 100 ml @ 100 mls/hr IV Q8HR [facility] Rx #:[id number] Other: # Voids 4 Active Medications: Current Medications Acetaminophen (Tylenol 650mg Supp) 650 mg RC Q6H PRN PRN Reason: Mild Pain/Headache/T above 101 Stop: 04/09/17 06:24 Dextrose/Sodium Chloride (D5-0.9%Ns) 1,000 mls @ 100 mls/hr IV .Q10H [facility] Stop: 04/09/17 06:29 Last Admin: 02/10/17 09:16 Dose: 100 mls/hr Piperacillin Sod/Tazobactam (Sod 4.5 gm/ Sodium Chloride) 100 mls @ 100 mls/hr IV Q8HR [facility] Stop: 04/09/17 20:59 Last Infusion: 02/09/17 17:29 Dose: Infused Potassium Chloride 40 meq/Lidocaine HCl 25 mg/ Sodium Chloride 272.5 mls @ 68 mls/hr IV X1 [facility] Stop: 02/10/17 13:00 Last Admin: 02/10/17 09:24 Dose: 68 mls/hr Lisinopril (Zestril) 10 mg PO BID [facility] Stop: 04/11/17 08:59 Lorazepam (Ativan) 1 mg IVP Q4H PRN; Protocol PRN Reason: Anxiety/Agitation Stop: 04/09/17 06:24 Last Admin: 02/09/17 12:28 Dose: 1 mg Metoprolol Tartrate (Lopressor) 25 mg PO BID [facility] Stop: 04/11/17 08:59 Morphine Sulfate (Morphine) 2 mg IVP Q4H PRN PRN Reason: Pain (Moderate) Stop: 04/09/17 06:24 Last Admin: 02/09/17 21:34 Dose: 2 mg Morphine Sulfate (Morphine) 4 mg IVP Q4H PRN PRN Reason: Severe Pain Stop: 04/09/17 06:24 Last Admin: 02/10/17 09:20 Dose: 4 mg Ondansetron HCl (Zofran) 4 mg IVP Q6H PRN PRN Reason: Nausea / Vomiting Stop: 04/09/17 06:24 General: no acute distress, well developed, well nourished HEENT: atraumatic, normocephalic, PERRLA, EOMI, moist mucous membrane Neck: supple Cardiovascular: S1S2, regular Lungs: clear to auscultation bilaterally, clear to percussion Abdomen: soft, tender (ruq), no distended Extremities: no cyanosis, no clubbing, no edema Neurological: awake, alert, oriented Skin: intact Infectious Disease Assmt/Plan - Assessment Assessment: 1. Cholecytitis. acute. 2. Leukocytosis, sepsis. Improving. 3. ILD. - Plan Plan: will continue zosyn. as per gi and surgery.
--- NOTE | 2017-02-10 12:39 | General Progress Note ---
Subjective - Review of Systems Service Date: 02/10/17 Events since last encounter: MRCP noted to hve ERCP before lap wilner discussed with son via phone Objective - Results Result Diagrams: 02/10/17 06:15 02/10/17 06:15 Recent Labs: Laboratory Last Values WBC 9.6 Th/cmm (4.8-10.8) D 02/10/17 06:15 RBC 4.11 Mil/cmm (3.80-5.20) 02/10/17 06:15 Hgb 13.0 gm/dL (11.7-16.1) 02/10/17 06:15 Hct 36.6 % (35.0-45.0) 02/10/17 06:15 MCV 89.0 fl (81-100) 02/10/17 06:15 MCH 31.6 pg (27.0-31.0) H 02/10/17 06:15 MCHC Differential 35.4 pg (28.0-36.0) 02/10/17 06:15 RDW 12.4 % (11.5-20.0) 02/10/17 06:15 Plt Count 197 Th/cmm (150-400) 02/10/17 06:15 MPV 10.5 fl 02/10/17 06:15 Neutrophils % 76.6 % (40.0-80.0) 02/10/17 06:15 Lymphocytes % 11.0 % (20.0-50.0) L 02/10/17 06:15 Monocytes % 11.2 % (2.0-10.0) H 02/10/17 06:15 Eosinophils % 0.5 % (0.0-5.0) 02/10/17 06:15 Basophils % 0.7 % (0.0-2.0) 02/10/17 06:15 Neutrophils (Manual) 79 % (40-80) 02/09/17 05:45 Lymphocytes 8 % (20-50) L 02/09/17 05:45 Monocytes 13 % (2-10) H 02/09/17 05:45 Platelet Estimate ADEQUATE (NORMAL) 02/09/17 05:45 Platelet Morphology NORMAL (NORMAL) 02/09/17 05:45 RBC Morph Micro Appear NORMAL (NORMAL) 02/09/17 05:45 ESR 40 mm/hr (0-30) H 02/10/17 06:15 Sodium 142 mEq/L (136-145) 02/10/17 06:15 Potassium 2.8 mEq/L (3.5-5.1) L* 02/10/17 06:15 Chloride 106 mEq/L (98-107) 02/10/17 06:15 Carbon Dioxide 30.5 mEq/L (21.0-31.0) 02/10/17 06:15 Anion Gap 8.3 (7.0-16.0) 02/10/17 06:15 BUN 11 mg/dL (7-25) 02/10/17 06:15 Creatinine 0.4 mg/dL (0.6-1.2) L 02/10/17 06:15 Est GFR ( Amer) TNP 02/10/17 06:15 Est GFR (Non-Af Amer) TNP 02/10/17 06:15 BUN/Creatinine Ratio 27.5 02/10/17 06:15 Glucose 121 mg/dL (70-105) H 02/10/17 06:15 POC Glucose 158 MG/DL (70 - 105) H 02/08/17 21:26 Hemoglobin A1c % 5.2 % (4.0-6.0) 02/08/17 06:51 Calcium 9.9 mg/dL (8.6-10.3) 02/10/17 06:15 Magnesium 1.7 mg/dL (1.9-2.7) L 02/10/17 06:15 Total Bilirubin 6.0 mg/dL (0.3-1.0) H 02/10/17 06:15 AST 145 U/L (13-39) H 02/10/17 06:15 ALT 242 U/L (7-52) H 02/10/17 06:15 Alkaline Phosphatase 366 U/L (34-104) H 02/10/17 06:15 C-Reactive Protein 8.2 mg/dL (0.0-0.9) H 02/09/17 05:45 Total Protein 5.9 gm/dL (6.0-8.3) L 02/10/17 06:15 Albumin 2.8 gm/dL (3.7-5.3) L 02/10/17 06:15 Globulin 3.1 gm/dL 02/10/17 06:15 Albumin/Globulin Ratio 0.9 (1.0-1.8) L 02/10/17 06:15 Amylase 534 U/L (29-103) H 02/10/17 06:15 Lipase 444 U/L (11-82) H 02/10/17 06:15 TSH 0.92 uIU/ml (0.34-5.60) 02/10/17 06:15 Urine Source CATH 02/08/17 08:30 Urine Color YELLOW 02/08/17 08:30 Urine Clarity SL. CLOUDY (CLEAR) 02/08/17 08:30 Urine pH 6.0 02/08/17 08:30 Ur Specific [place] (1.005-1.030) 02/08/17 08:30 Urine Protein 30 mg/dL (NEGATIVE) H 02/08/17 08:30 Urine Glucose (UA) NEGATIVE mg/dL (NEGATIVE) 02/08/17 08:30 Urine Ketones 15 mg/dL (NEGATIVE) H 02/08/17 08:30 Urine Blood SMALL (NEGATIVE) H 02/08/17 08:30 Urine Nitrate NEGATIVE (NEGATIVE) 02/08/17 08:30 Urine Bilirubin NEGATIVE (NEGATIVE) 02/08/17 08:30 Urine Urobilinogen 0.2 E.U./dL (0.2 - 1.0) 02/08/17 08:30 Ur Leukocyte Esterase NEGATIVE (NEGATIVE) 02/08/17 08:30 Urine RBC 0-2 /hpf (0-5) 02/08/17 08:30 Urine WBC 6-10 /hpf (0-5) H 02/08/17 08:30 Ur Epithelial Cells RARE /lpf (FEW) 02/08/17 08:30 Urine Bacteria OCCASIONAL /hpf (NONE SEEN) 02/08/17 08:30 - Physical Exam Vitals and I&O: Vital Signs Temp 97.0 F 02/10/17 08:34 Pulse 107 02/10/17 08:34 Resp 18 02/10/17 08:34 BP 150/91 02/10/17 08:34 Pulse Ox 95 02/10/17 08:34 Intake & Output 02/09/17 02/10/17 02/10/17 18:59 06:59 18:59 Intake Total 1200 1000 Balance 1200 1000 Intake: Intake, IV Amount 1200 1000 D5-0.9%Ns 1,000 ml @ 100 1000 1000 mls/hr IV .Q10H [facility] Rx#: [id number] KCL 20mEq/100mL Premix 20 100 meq In 100 ml @ 50 mls/ hr IV Q2H [facility] Rx#: [id number] Piperacillin Sodium/ 100 Tazobact 4.5 gm In Sodium Chloride 0.9% 100 ml @ 100 mls/hr IV Q8HR [facility] Rx #:[id number] Other: # Voids 4 Active Medications: Current Medications Acetaminophen (Tylenol 650mg Supp) 650 mg RC Q6H PRN PRN Reason: Mild Pain/Headache/T above 101 Stop: 04/09/17 06:24 Dextrose/Sodium Chloride (D5-0.9%Ns) 1,000 mls @ 100 mls/hr IV .Q10H [facility] Stop: 04/09/17 06:29 Last Admin: 02/10/17 09:16 Dose: 100 mls/hr Piperacillin Sod/Tazobactam (Sod 4.5 gm/ Sodium Chloride) 100 mls @ 100 mls/hr IV Q8HR [facility] Stop: 04/09/17 20:59 Last Infusion: 02/09/17 17:29 Dose: Infused Potassium Chloride 40 meq/Lidocaine HCl 25 mg/ Sodium Chloride 272.5 mls @ 68 mls/hr IV X1 [facility] Stop: 02/10/17 13:00 Last Admin: 02/10/17 09:24 Dose: 68 mls/hr Lisinopril (Zestril) 10 mg PO BID [facility] Stop: 04/11/17 08:59 Lorazepam (Ativan) 1 mg IVP Q4H PRN; Protocol PRN Reason: Anxiety/Agitation Stop: 04/09/17 06:24 Last Admin: 02/09/17 12:28 Dose: 1 mg Metoprolol Tartrate (Lopressor) 25 mg PO BID [facility] Stop: 04/11/17 08:59 Morphine Sulfate (Morphine) 2 mg IVP Q4H PRN PRN Reason: Pain (Moderate) Stop: 04/09/17 06:24 Last Admin: 02/09/17 21:34 Dose: 2 mg Morphine Sulfate (Morphine) 4 mg IVP Q4H PRN PRN Reason: Severe Pain Stop: 04/09/17 06:24 Last Admin: 02/10/17 09:20 Dose: 4 mg Ondansetron HCl (Zofran) 4 mg IVP Q6H PRN PRN Reason: Nausea / Vomiting Stop: 04/09/17 06:24
--- NOTE | 2017-02-10 12:46 | Progress Notes ---
SUBJECTIVE: The patient is awake and alert. The patient denies any abdominal pain. The patient denies any nausea or vomiting. The patient had MRCP today. The patient is on IV antibiotics. OBJECTIVE: VITAL SIGNS: Temperature is 98.3, pulse 100, blood pressure 154/98, respirations 20 and O2 saturation is 94% on room air. CARDIOVASCULAR: S1 and S2. RESPIRATORY: Clear. ABDOMEN: Soft. Positive bowel sounds. LABORATORY DATA: Hematology: WBC 12.5, hemoglobin 13.3, hematocrit 39.2, platelet count 206, 8% lymphocytes, and eosinophils 41. Chemistry: Sodium 137, potassium 2.9, chloride 103, bicarb 28, anion gap 8.2, BUN 9, creatinine 0.4, GFR unavailable, glucose 153 and calcium is 9.7. Total bilirubin 4.2, AST is 229, ALT 292, alkaline phosphatase per labs. C-reactive protein 8.2, total protein 6.5, albumin 3.2 and globulin 3.3. MICROBIOLOGY: MRSA screen from February 08, negative. RADIOLOGY: No new results. ASSESSMENT: 1. Systemic inflammatory response syndrome. 2. Acute cholecystitis 3. Possible choledocholithiasis. 4. Leukocytosis. 5. Hypokalemia. 6. Hyperglycemia. 7. Transaminitis. 8. Hypoalbuminemia. 9. Hypertension. PLAN: Continue current medications and treatment. Obtain labs a.m. Awaiting MRCP results. We will obtain cardiology consultation regarding hypertension. Further recommendations per consults. JOB# [id number] MTDD
[2017-02-11] MEDS: Morphine Sulfate 2 mg/mL 1mL Syr IVP PRN ×2 (02:54→21:19)
[2017-02-11 05:49] LABS: % BASOPHILS 0.5 % (0.0-2.0); % EOSINOPHILS 1.3 % (0.0-5.0); % LYMPHOCYTES 12.2 % (20.0-50.0); % MONOCYTES 11.4 % (2.0-10.0); % NEUTROPHILS 74.6 % (40.0-80.0); HEMATOCRIT 34.5 % (35.0-45.0); HEMOGLOBIN 11.7 gm/dL (11.7-16.1); MEAN CELL VOLUME 89.9 fl (81-100); MEAN CORPUSCULAR HEMOGLOBIN 30.6 pg (27.0-31.0); MEAN CORPUSCULAR HGB CONC 34.1 pg (28.0-36.0); MEAN PLATELET VOLUME 9.5 fl; NEUTROPHILE ABSOLUTE 6.8 Th/cmm (1.8-8.0); PLATELET COUNT 190 Th/cmm (150-400); RED BLOOD COUNT 3.83 Mil/cmm (3.80-5.20); RED CELL DISTRIBUTION WIDTH 12.2 % (11.5-20.0)
[2017-02-11 06:04] LABS: INR 1.09 (0.5-1.4); PROTHROMBIN TIME (TEST) 11.3 SECONDS (9.5-11.5)
[2017-02-11 06:12] LABS: ALB/GLOB RATIO 0.9 (1.0-1.8); ALKALINE PHOSPHATASE 345 U/L (34-104); AMYLASE SERUM 123 U/L (29-103); ANION GAP 5.2 (7.0-16.0); BUN - UREA NITROGEN 11 mg/dL (7-25); BUN/CREATININE RATIO 27.5; CALCIUM SERUM 9.9 mg/dL (8.6-10.3); CARBON DIOXIDE 32.5 mEq/L (21.0-31.0); CHLORIDE 107 mEq/L (98-107); CREATININE - SERUM 0.4 mg/dL (0.6-1.2); GLUCOSE 128 mg/dL (70-105); LIPASE 72 U/L (11-82); SGOT 111 U/L (13-39); SGPT/ALT 193 U/L (7-52); SODIUM SERUM 142 mEq/L (136-145)
[2017-02-11 06:14] LABS: POTASSIUM SERUM 2.7 mEq/L (3.5-5.1)
--- NOTE | 2017-02-11 07:37 | General Progress Note ---
Subjective - Review of Systems Service Date: 02/11/17 Events since last encounter: EGD today, possble lap wilner in AM Objective - Results Result Diagrams: 02/11/17 05:36 02/11/17 05:36 Recent Labs: Laboratory Last Values WBC 9.0 Th/cmm (4.8-10.8) 02/11/17 05:36 RBC 3.83 Mil/cmm (3.80-5.20) 02/11/17 05:36 Hgb 11.7 gm/dL (11.7-16.1) 02/11/17 05:36 Hct 34.5 % (35.0-45.0) L 02/11/17 05:36 MCV 89.9 fl (81-100) 02/11/17 05:36 MCH 30.6 pg (27.0-31.0) 02/11/17 05:36 MCHC Differential 34.1 pg (28.0-36.0) 02/11/17 05:36 RDW 12.2 % (11.5-20.0) 02/11/17 05:36 Plt Count 190 Th/cmm (150-400) 02/11/17 05:36 MPV 9.5 fl 02/11/17 05:36 Neutrophils % 74.6 % (40.0-80.0) 02/11/17 05:36 Lymphocytes % 12.2 % (20.0-50.0) L 02/11/17 05:36 Monocytes % 11.4 % (2.0-10.0) H 02/11/17 05:36 Eosinophils % 1.3 % (0.0-5.0) 02/11/17 05:36 Basophils % 0.5 % (0.0-2.0) 02/11/17 05:36 Neutrophils (Manual) 79 % (40-80) 02/09/17 05:45 Lymphocytes 8 % (20-50) L 02/09/17 05:45 Monocytes 13 % (2-10) H 02/09/17 05:45 Platelet Estimate ADEQUATE (NORMAL) 02/09/17 05:45 Platelet Morphology NORMAL (NORMAL) 02/09/17 05:45 RBC Morph Micro Appear NORMAL (NORMAL) 02/09/17 05:45 ESR 40 mm/hr (0-30) H 02/10/17 06:15 PT 11.3 SECONDS (9.5-11.5) 02/11/17 05:36 INR 1.09 (0.5-1.4) 02/11/17 05:36 Sodium 142 mEq/L (136-145) 02/11/17 05:36 Potassium 2.7 mEq/L (3.5-5.1) L* 02/11/17 05:36 Chloride 107 mEq/L (98-107) 02/11/17 05:36 Carbon Dioxide 32.5 mEq/L (21.0-31.0) H 02/11/17 05:36 Anion Gap 5.2 (7.0-16.0) L 02/11/17 05:36 BUN 11 mg/dL (7-25) 02/11/17 05:36 Creatinine 0.4 mg/dL (0.6-1.2) L 02/11/17 05:36 Est GFR ( Amer) TNP 02/11/17 05:36 Est GFR (Non-Af Amer) TNP 02/11/17 05:36 BUN/Creatinine Ratio 27.5 02/11/17 05:36 Glucose 128 mg/dL (70-105) H 02/11/17 05:36 POC Glucose 158 MG/DL (70 - 105) H 02/08/17 21:26 Hemoglobin A1c % 5.2 % (4.0-6.0) 02/08/17 06:51 Calcium 9.9 mg/dL (8.6-10.3) 02/11/17 05:36 Magnesium 1.7 mg/dL (1.9-2.7) L 02/10/17 06:15 Total Bilirubin 6.0 mg/dL (0.3-1.0) H 02/11/17 05:36 AST 111 U/L (13-39) H 02/11/17 05:36 ALT 193 U/L (7-52) H 02/11/17 05:36 Alkaline Phosphatase 345 U/L (34-104) H 02/11/17 05:36 C-Reactive Protein 8.9 mg/dL (0.0-0.9) H 02/10/17 06:15 Total Protein 5.7 gm/dL (6.0-8.3) L 02/11/17 05:36 Albumin 2.7 gm/dL (3.7-5.3) L 02/11/17 05:36 Globulin 3.0 gm/dL 02/11/17 05:36 Albumin/Globulin Ratio 0.9 (1.0-1.8) L 02/11/17 05:36 Amylase 123 U/L (29-103) H 02/11/17 05:36 Lipase 72 U/L (11-82) 02/11/17 05:36 TSH 0.92 uIU/ml (0.34-5.60) 02/10/17 06:15 Urine Source CATH 02/08/17 08:30 Urine Color YELLOW 02/08/17 08:30 Urine Clarity SL. CLOUDY (CLEAR) 02/08/17 08:30 Urine pH 6.0 02/08/17 08:30 Ur Specific [place] (1.005-1.030) 02/08/17 08:30 Urine Protein 30 mg/dL (NEGATIVE) H 02/08/17 08:30 Urine Glucose (UA) NEGATIVE mg/dL (NEGATIVE) 02/08/17 08:30 Urine Ketones 15 mg/dL (NEGATIVE) H 02/08/17 08:30 Urine Blood SMALL (NEGATIVE) H 02/08/17 08:30 Urine Nitrate NEGATIVE (NEGATIVE) 02/08/17 08:30 Urine Bilirubin NEGATIVE (NEGATIVE) 02/08/17 08:30 Urine Urobilinogen 0.2 E.U./dL (0.2 - 1.0) 02/08/17 08:30 Ur Leukocyte Esterase NEGATIVE (NEGATIVE) 02/08/17 08:30 Urine RBC 0-2 /hpf (0-5) 02/08/17 08:30 Urine WBC 6-10 /hpf (0-5) H 02/08/17 08:30 Ur Epithelial Cells RARE /lpf (FEW) 02/08/17 08:30 Urine Bacteria OCCASIONAL /hpf (NONE SEEN) 02/08/17 08:30 - Physical Exam Vitals and I&O: Vital Signs Temp 98.2 F 02/11/17 04:00 Pulse 90 02/11/17 04:00 Resp 17 02/11/17 04:00 BP 101/69 02/11/17 04:00 Pulse Ox 94 02/11/17 04:00 Intake & Output 02/10/17 02/11/17 02/11/17 18:59 06:59 18:59 Other: # Voids 3 2 Active Medications: Current Medications Acetaminophen (Tylenol 650mg Supp) 650 mg RC Q6H PRN PRN Reason: Mild Pain/Headache/T above 101 Stop: 04/09/17 06:24 Amlodipine Besylate (Norvasc) 10 mg PO DAILY [facility] Stop: 04/11/17 16:59 Last Admin: 02/10/17 17:53 Dose: 10 mg Dextrose/Sodium Chloride (D5-0.9%Ns) 1,000 mls @ 100 mls/hr IV .Q10H [facility] Stop: 04/09/17 06:29 Last Admin: 02/10/17 09:16 Dose: 100 mls/hr Piperacillin Sod/Tazobactam (Sod 4.5 gm/ Sodium Chloride) 100 mls @ 100 mls/hr IV Q8HR [facility] Stop: 04/09/17 20:59 Last Admin: 02/10/17 13:07 Dose: 100 mls/hr Lorazepam (Ativan) 1 mg IVP Q4H PRN; Protocol PRN Reason: Anxiety/Agitation Stop: 04/09/17 06:24 Last Admin: 02/11/17 02:54 Dose: 1 mg Metoprolol Tartrate (Lopressor) 25 mg PO BID [facility] Stop: 04/11/17 08:59 Last Admin: 02/10/17 17:55 Dose: Not Given Morphine Sulfate (Morphine) 2 mg IVP Q4H PRN PRN Reason: Pain (Moderate) Stop: 04/09/17 06:24 Last Admin: 02/11/17 02:54 Dose: 2 mg Morphine Sulfate (Morphine) 4 mg IVP Q4H PRN PRN Reason: Severe Pain Stop: 04/09/17 06:24 Last Admin: 02/10/17 22:14 Dose: 4 mg Ondansetron HCl (Zofran) 4 mg IVP Q6H PRN PRN Reason: Nausea / Vomiting Stop: 04/09/17 06:24
--- NOTE | 2017-02-11 09:17 | Consultation ---
CARDIOLOGY CONSULT This patient was seen on courtesy of Dr. Shelley Gillette as the patient is having hypertension, which is labile. This patient was seen on courtesy of Dr. Shelley Gillette and is coming with hypertension. History obtained via from the son and who is bedside. Accordingly, the patient has history of hypertension about 2 years ago and was given some medication but after sometime, she stopped taking that because her blood pressure at home is normal. According to her, she checks her blood pressure in the morning and most of the time upper number is 120 to 126 range. She has been admitted here for acute cholecystitis and cholelithiasis. She was admitted with nausea and vomiting with abdominal pain, which got worse, so came to the Emergency Room. The workup was suggestive of cholecystitis and cholelithiasis, and with the workup done in Emergency Room at [facility] shows that her intraductal stone and waiting for GI person to do the procedure to take the stone out from the common bile duct, and then surgical referral. PAST HISTORY: Hypertension as mentioned above, which was being controlled without any medication. PERSONAL HISTORY: , lives with her . Nonsmoker, nonalcoholic, no drug abuse. ALLERGY: No known drug allergies. REVIEW OF SYSTEMS: Nothing contributory from cardiac point of view. PHYSICAL EXAMITION: GENERAL: The patient is a 76-year-old female who is not in acute distress but anxious looking. VITAL SIGNS: Her blood pressure has been 160 to high 150 systolic blood pressure and diastolic within normal range. Heart rate in normal range. HEENT: Normal. NECK: Supple. JVP is flat. No lymphadenopathy. CHEST WALL: Bilaterally, no chest wall tenderness. LUNGS: Clinically clear. CARDIOVASCULAR SYSTEM: PMI not palpable. HEART SOUNDS: S1 is likely loudest. S3 is loud. There is systolic ejection murmur, which is 3/6 heard in the aortic area conducting towards the carotid, towards the apex. P2 is loud also. No rub is appreciated. ABDOMEN: Her abdomen is tender in right upper quadrant and in epigastric area. Bowel sounds are present. CENTRAL NERVOUS SYSTEM: Grossly normal. EXTREMITIES: No edema, no cyanosis, and no clubbing. Pedal pulsations are equal bilateral. ASSESSMENT: 1. Hypertension, uncontrolled, possibly aggravated due to the pain and secondary to acute cholecystitis and lithiasis. History of hypertension, well controlled on diet and without medication. 2. Electrolyte disorder. 3. Hepatic dysfunction secondary to obstructive cholelithiasis with hepatic dysfunction. 4. Other medical problems: As per chart. TREATMENT AND PLAN: From cardiac point of view, I would like to see the effect of the intake of the medications. So, in case, if blood pressure remains persistently high, then I will adjust the therapy accordingly. I started with metoprolol 25 mg p.o. b.i.d. Looking blood pressure high in the 150s and 160 range because no medications could be given by mouth. Further adjustment could be done accordingly. Thank you very much Dr. Millan for your kind referral and I will follow along with you during her acute cardiac problem. JOB# [id number] MTDTyler
--- NOTE | 2017-02-11 10:42 | Progress Notes ---
SUBJECTIVE: The patient is awake and alert. The patient is on IV antibiotics. The patient is on IV fluids. OBJECTIVE: VITAL SIGNS: Temperature 97.9, pulse 84, blood pressure 155/101, respiratory rate 18, O2 saturation on room air. CARDIOVASCULAR: S1 and S2. RESPIRATORY: Clear. GASTROINTESTINAL: Soft. Bowel sounds. LABORATORY DATA: Hematology: WBC 9.6, hemoglobin 13.0, hematocrit 36.6, platelet count of 197, 11% lymphocytes, 11% monocytes. ESR is 40. Chemistry: Sodium 142, potassium per labs, chloride 106, bicarbonate 30, anion gap 3.5, BUN 11, creatinine 0.8, glucose is 121, calcium 9.9, magnesium 1.7. Total bilirubin per labs, AST is 145, ALT is 242, alkaline phosphatase per labs. Total protein 5.9, albumin 3.8, globulin 3.1, amylase 534, lipase per labs. TSH is 0.92. MICROBIOLOGY: MRSA screen from February 09 is negative. RADIOLOGY: Chest x-ray from February 09 shows chronic lung changes, no focal consolidation identified and atherosclerotic vascular disease. MRI of the abdomen shows distended gallbladder with numerous gallstones anddiffuse gallbladder, common bile duct measuring 1 cm. Small 2-3 mm stones in the distal common bile duct cannot be excluded. ASSESSMENT: 1. Systemic inflammatory response syndrome. 2. Acute cholecystitis. 3. Possible cholelithiasis. 4. Transaminitis. 5. Hypertension. PLAN: Continue current medication and treatment. Obtain labs in a.m. The patient is awaiting ERCP. Further recommendations per consults. JOB# [id number] [facility]
[2017-02-11] MEDS ORDERED: IOHEXOL 300MG/ML 50 ML VIAL ONE (11:49)
[2017-02-11] MEDS ORDERED: Midazolam 1mg/ml 2 ml vial IV ONE (12:23)
--- NOTE | 2017-02-11 14:12 | Diagnostic Imaging Report ---
Fluoroscopy was utilized for facilitation of ERCP procedure. Please refer to procedural report for complete details. The total fluoroscopic time for the exam was 2 minutes and 36 seconds.
--- NOTE | 2017-02-11 14:51 | Operative Report ---
PROCEDURE PERFORMED: 1. ERCP with sphincterotomy. 2. ERCP with removal of stones. INDICATION FOR PROCEDURE: Common bile duct stones. CONSENT: Informed consent was obtained from the patient after outlining benefits and risks including infection, bleeding, perforation, , pancreatitis. ANESTHESIA USED: Propofol by Dr. Maria. PREOPERATIVE DIAGNOSIS: Common bile duct stone. POSTOPERATIVE DIAGNOSES: 1. Common bile duct stone, status post sphincterotomy and removal of 3 stones. 2. Cholelithiasis. DESCRIPTION OF PROCEDURE: The patient was placed in prone position. Side-viewing duodenoscope was introduced into the mouth and advanced to the esophagus, which was intubated under direct visualization. Scope was advanced to the stomach where the gastric mucosa was briefly examined. Then, scope was advanced through the pylorus to the duodenum, ampulla was seen and it was bulgy, protruding, pointing downwards. Using sphincterotome, we were able to cannulate for first attempt. Wire was introduced into the duct. Contrast was injected. Duct was dilated. There was filling defect. We tried to inject more. At this time, the sphincterotome fell out of the duct, so it was recannulated again and again for first attempt, it went to the common bile duct. Contrast was injected. There was filling defect in the duct. There was cholelithiasis. Over a guidewire, sphincterotomy was done. There was a little bit of bleeding from the sphincterotomy site, which slowed and lots of puss came out and then over a guidewire, the sphincterotome was exchanged for a balloon, size 11.5. Then, the balloon was used to clean the duct, 3 stones came out, but with this, more bleeding happened, so we cleaned the duct. We applied some pressure to the ampulla, and the bleeding stopped, then we did more occlusive cholangiogram, no filling defects were noted. So the balloon was deflated and advanced way up to the duct and then the wire was pulled out and we used a wire port to flush the duct with saline, and no more stones came out. Then another occlusive cholangiogram was obtained, which was negative. Then, we took the balloon to outside of the orifice. Wire was withdrawn and saline was used to flush the office. No bleeding was noted. Bleeding had stopped, so scope was then withdrawn. The patient tolerated the procedure well. There were no immediate postoperative complications. RECOMMENDATIONS: 1. Monitor the patient's labs. 2. Laparoscopic cholecystectomy in the morning. Thank you, Dr. Gillette for allowing me to participate in the care of the patient. If you have any further questions, please let me know. JOB# [id number] MTDD
--- NOTE | 2017-02-11 15:41 | General Progress Note ---
Subjective - Review of Systems Service Date: 02/11/17 Events since last encounter: ERCP done removal of CBD stones will schedule for lap wilner in AM Objective - Results Result Diagrams: 02/11/17 05:36 02/11/17 05:36 Recent Labs: Laboratory Last Values WBC 9.0 Th/cmm (4.8-10.8) 02/11/17 05:36 RBC 3.83 Mil/cmm (3.80-5.20) 02/11/17 05:36 Hgb 11.7 gm/dL (11.7-16.1) 02/11/17 05:36 Hct 34.5 % (35.0-45.0) L 02/11/17 05:36 MCV 89.9 fl (81-100) 02/11/17 05:36 MCH 30.6 pg (27.0-31.0) 02/11/17 05:36 MCHC Differential 34.1 pg (28.0-36.0) 02/11/17 05:36 RDW 12.2 % (11.5-20.0) 02/11/17 05:36 Plt Count 190 Th/cmm (150-400) 02/11/17 05:36 MPV 9.5 fl 02/11/17 05:36 Neutrophils % 74.6 % (40.0-80.0) 02/11/17 05:36 Lymphocytes % 12.2 % (20.0-50.0) L 02/11/17 05:36 Monocytes % 11.4 % (2.0-10.0) H 02/11/17 05:36 Eosinophils % 1.3 % (0.0-5.0) 02/11/17 05:36 Basophils % 0.5 % (0.0-2.0) 02/11/17 05:36 Neutrophils (Manual) 79 % (40-80) 02/09/17 05:45 Lymphocytes 8 % (20-50) L 02/09/17 05:45 Monocytes 13 % (2-10) H 02/09/17 05:45 Platelet Estimate ADEQUATE (NORMAL) 02/09/17 05:45 Platelet Morphology NORMAL (NORMAL) 02/09/17 05:45 RBC Morph Micro Appear NORMAL (NORMAL) 02/09/17 05:45 ESR 55 mm/hr (0-30) H 02/11/17 05:36 PT 11.3 SECONDS (9.5-11.5) 02/11/17 05:36 INR 1.09 (0.5-1.4) 02/11/17 05:36 Sodium 142 mEq/L (136-145) 02/11/17 05:36 Potassium 2.7 mEq/L (3.5-5.1) L* 02/11/17 05:36 Chloride 107 mEq/L (98-107) 02/11/17 05:36 Carbon Dioxide 32.5 mEq/L (21.0-31.0) H 02/11/17 05:36 Anion Gap 5.2 (7.0-16.0) L 02/11/17 05:36 BUN 11 mg/dL (7-25) 02/11/17 05:36 Creatinine 0.4 mg/dL (0.6-1.2) L 02/11/17 05:36 Est GFR ( Amer) TNP 02/11/17 05:36 Est GFR (Non-Af Amer) TNP 02/11/17 05:36 BUN/Creatinine Ratio 27.5 02/11/17 05:36 Glucose 128 mg/dL (70-105) H 02/11/17 05:36 POC Glucose 158 MG/DL (70 - 105) H 02/08/17 21:26 Hemoglobin A1c % 5.2 % (4.0-6.0) 02/08/17 06:51 Calcium 9.9 mg/dL (8.6-10.3) 02/11/17 05:36 Magnesium 1.7 mg/dL (1.9-2.7) L 02/10/17 06:15 Total Bilirubin 6.0 mg/dL (0.3-1.0) H 02/11/17 05:36 AST 111 U/L (13-39) H 02/11/17 05:36 ALT 193 U/L (7-52) H 02/11/17 05:36 Alkaline Phosphatase 345 U/L (34-104) H 02/11/17 05:36 C-Reactive Protein 7.5 mg/dL (0.0-0.9) H 02/11/17 05:36 Total Protein 5.7 gm/dL (6.0-8.3) L 02/11/17 05:36 Albumin 2.7 gm/dL (3.7-5.3) L 02/11/17 05:36 Globulin 3.0 gm/dL 02/11/17 05:36 Albumin/Globulin Ratio 0.9 (1.0-1.8) L 02/11/17 05:36 Amylase 123 U/L (29-103) H 02/11/17 05:36 Lipase 72 U/L (11-82) 02/11/17 05:36 TSH 0.92 uIU/ml (0.34-5.60) 02/10/17 06:15 Urine Source CATH 02/08/17 08:30 Urine Color YELLOW 02/08/17 08:30 Urine Clarity SL. CLOUDY (CLEAR) 02/08/17 08:30 Urine pH 6.0 02/08/17 08:30 Ur Specific [place] (1.005-1.030) 02/08/17 08:30 Urine Protein 30 mg/dL (NEGATIVE) H 02/08/17 08:30 Urine Glucose (UA) NEGATIVE mg/dL (NEGATIVE) 02/08/17 08:30 Urine Ketones 15 mg/dL (NEGATIVE) H 02/08/17 08:30 Urine Blood SMALL (NEGATIVE) H 02/08/17 08:30 Urine Nitrate NEGATIVE (NEGATIVE) 02/08/17 08:30 Urine Bilirubin NEGATIVE (NEGATIVE) 02/08/17 08:30 Urine Urobilinogen 0.2 E.U./dL (0.2 - 1.0) 02/08/17 08:30 Ur Leukocyte Esterase NEGATIVE (NEGATIVE) 02/08/17 08:30 Urine RBC 0-2 /hpf (0-5) 02/08/17 08:30 Urine WBC 6-10 /hpf (0-5) H 02/08/17 08:30 Ur Epithelial Cells RARE /lpf (FEW) 02/08/17 08:30 Urine Bacteria OCCASIONAL /hpf (NONE SEEN) 02/08/17 08:30 - Physical Exam Vitals and I&O: Vital Signs Temp 97.7 F 02/11/17 12:00 Pulse 101 02/11/17 12:00 Resp 18 02/11/17 12:00 BP 145/88 02/11/17 12:00 Pulse Ox 95 02/11/17 12:00 Intake & Output 02/10/17 02/11/17 02/11/17 18:59 06:59 18:59 Other: # Voids 3 2 Active Medications: Current Medications Acetaminophen (Tylenol 650mg Supp) 650 mg RC Q6H PRN PRN Reason: Mild Pain/Headache/T above 101 Stop: 04/09/17 06:24 Amlodipine Besylate (Norvasc) 10 mg PO DAILY [facility] Stop: 04/11/17 16:59 Last Admin: 02/11/17 09:46 Dose: Not Given Dextrose/Sodium Chloride (D5-0.9%Ns) 1,000 mls @ 100 mls/hr IV .Q10H [facility] Stop: 04/09/17 06:29 Last Admin: 02/10/17 09:16 Dose: 100 mls/hr Piperacillin Sod/Tazobactam (Sod 4.5 gm/ Sodium Chloride) 100 mls @ 100 mls/hr IV Q8HR [facility] Stop: 04/09/17 20:59 Last Admin: 02/10/17 13:07 Dose: 100 mls/hr Potassium Chloride (Potassium Chloride) 20 meq in 100 mls @ 50 mls/hr IV Q2H [facility] Stop: 02/11/17 19:14 Lorazepam (Ativan) 1 mg IVP Q4H PRN; Protocol PRN Reason: Anxiety/Agitation Stop: 04/09/17 06:24 Last Admin: 02/11/17 02:54 Dose: 1 mg Metoprolol Tartrate (Lopressor) 25 mg PO BID [facility] Stop: 04/11/17 08:59 Last Admin: 02/11/17 09:47 Dose: Not Given Morphine Sulfate (Morphine) 2 mg IVP Q4H PRN PRN Reason: Pain (Moderate) Stop: 04/09/17 06:24 Last Admin: 02/11/17 02:54 Dose: 2 mg Morphine Sulfate (Morphine) 4 mg IVP Q4H PRN PRN Reason: Severe Pain Stop: 04/09/17 06:24 Last Admin: 02/10/17 22:14 Dose: 4 mg Ondansetron HCl (Zofran) 4 mg IVP Q6H PRN PRN Reason: Nausea / Vomiting Stop: 04/09/17 06:24 Potassium Chloride (Klor-Con) 20 meq PO DAILY [facility] Stop: 04/12/17 15:14
[2017-02-11] MEDS: Potassium Chloride 20 mEq ER Tab PO SCH (15:45)
[2017-02-11] MEDS: KCL 20mEq/100mL Premix 20 MEQ/100 ML PIGGYBACK IV SCH ×2 (15:45→17:49)
--- NOTE | 2017-02-11 22:22 | Infectious Disease Prog Note ---
Infectious Disease Subjective - Review of Systems Service Date: 02/11/17 Subjective: ERCP was perfomed. Infectious Disease Objective - Results Result Diagrams: 02/11/17 05:36 02/11/17 05:36 Recent Labs: Laboratory Last Values WBC 9.0 Th/cmm (4.8-10.8) 02/11/17 05:36 RBC 3.83 Mil/cmm (3.80-5.20) 02/11/17 05:36 Hgb 11.7 gm/dL (11.7-16.1) 02/11/17 05:36 Hct 34.5 % (35.0-45.0) L 02/11/17 05:36 MCV 89.9 fl (81-100) 02/11/17 05:36 MCH 30.6 pg (27.0-31.0) 02/11/17 05:36 MCHC Differential 34.1 pg (28.0-36.0) 02/11/17 05:36 RDW 12.2 % (11.5-20.0) 02/11/17 05:36 Plt Count 190 Th/cmm (150-400) 02/11/17 05:36 MPV 9.5 fl 02/11/17 05:36 Neutrophils % 74.6 % (40.0-80.0) 02/11/17 05:36 Lymphocytes % 12.2 % (20.0-50.0) L 02/11/17 05:36 Monocytes % 11.4 % (2.0-10.0) H 02/11/17 05:36 Eosinophils % 1.3 % (0.0-5.0) 02/11/17 05:36 Basophils % 0.5 % (0.0-2.0) 02/11/17 05:36 Neutrophils (Manual) 79 % (40-80) 02/09/17 05:45 Lymphocytes 8 % (20-50) L 02/09/17 05:45 Monocytes 13 % (2-10) H 02/09/17 05:45 Platelet Estimate ADEQUATE (NORMAL) 02/09/17 05:45 Platelet Morphology NORMAL (NORMAL) 02/09/17 05:45 RBC Morph Micro Appear NORMAL (NORMAL) 02/09/17 05:45 ESR 55 mm/hr (0-30) H 02/11/17 05:36 PT 11.3 SECONDS (9.5-11.5) 02/11/17 05:36 INR 1.09 (0.5-1.4) 02/11/17 05:36 Sodium 142 mEq/L (136-145) 02/11/17 05:36 Potassium 2.7 mEq/L (3.5-5.1) L* 02/11/17 05:36 Chloride 107 mEq/L (98-107) 02/11/17 05:36 Carbon Dioxide 32.5 mEq/L (21.0-31.0) H 02/11/17 05:36 Anion Gap 5.2 (7.0-16.0) L 02/11/17 05:36 BUN 11 mg/dL (7-25) 02/11/17 05:36 Creatinine 0.4 mg/dL (0.6-1.2) L 02/11/17 05:36 Est GFR ( Amer) TNP 02/11/17 05:36 Est GFR (Non-Af Amer) TNP 02/11/17 05:36 BUN/Creatinine Ratio 27.5 02/11/17 05:36 Glucose 128 mg/dL (70-105) H 02/11/17 05:36 POC Glucose 158 MG/DL (70 - 105) H 02/08/17 21:26 Hemoglobin A1c % 5.2 % (4.0-6.0) 02/08/17 06:51 Calcium 9.9 mg/dL (8.6-10.3) 02/11/17 05:36 Magnesium 1.7 mg/dL (1.9-2.7) L 02/10/17 06:15 Total Bilirubin 6.0 mg/dL (0.3-1.0) H 02/11/17 05:36 AST 111 U/L (13-39) H 02/11/17 05:36 ALT 193 U/L (7-52) H 02/11/17 05:36 Alkaline Phosphatase 345 U/L (34-104) H 02/11/17 05:36 C-Reactive Protein 7.5 mg/dL (0.0-0.9) H 02/11/17 05:36 Total Protein 5.7 gm/dL (6.0-8.3) L 02/11/17 05:36 Albumin 2.7 gm/dL (3.7-5.3) L 02/11/17 05:36 Globulin 3.0 gm/dL 02/11/17 05:36 Albumin/Globulin Ratio 0.9 (1.0-1.8) L 02/11/17 05:36 Amylase 123 U/L (29-103) H 02/11/17 05:36 Lipase 72 U/L (11-82) 02/11/17 05:36 TSH 0.92 uIU/ml (0.34-5.60) 02/10/17 06:15 Urine Source CATH 02/08/17 08:30 Urine Color YELLOW 02/08/17 08:30 Urine Clarity SL. CLOUDY (CLEAR) 02/08/17 08:30 Urine pH 6.0 02/08/17 08:30 Ur Specific [place] (1.005-1.030) 02/08/17 08:30 Urine Protein 30 mg/dL (NEGATIVE) H 02/08/17 08:30 Urine Glucose (UA) NEGATIVE mg/dL (NEGATIVE) 02/08/17 08:30 Urine Ketones 15 mg/dL (NEGATIVE) H 02/08/17 08:30 Urine Blood SMALL (NEGATIVE) H 02/08/17 08:30 Urine Nitrate NEGATIVE (NEGATIVE) 02/08/17 08:30 Urine Bilirubin NEGATIVE (NEGATIVE) 02/08/17 08:30 Urine Urobilinogen 0.2 E.U./dL (0.2 - 1.0) 02/08/17 08:30 Ur Leukocyte Esterase NEGATIVE (NEGATIVE) 02/08/17 08:30 Urine RBC 0-2 /hpf (0-5) 02/08/17 08:30 Urine WBC 6-10 /hpf (0-5) H 02/08/17 08:30 Ur Epithelial Cells RARE /lpf (FEW) 02/08/17 08:30 Urine Bacteria OCCASIONAL /hpf (NONE SEEN) 02/08/17 08:30 - Physical Exam Vitals and I&O: Vital Signs Temp 98 F 02/11/17 20:00 Pulse 83 02/11/17 20:00 Resp 18 02/11/17 20:00 BP 147/98 02/11/17 20:00 Pulse Ox 97 02/11/17 20:00 Intake & Output 02/11/17 02/11/17 02/12/17 06:59 18:59 06:59 Intake Total 100 Balance 100 Intake: Intake, IV Amount 100 KCL 20mEq/100mL Premix 20 100 meq In 100 ml @ 50 mls/ hr IV Q2H [facility] Rx#: [id number] Other: # Voids 2 Active Medications: Current Medications Acetaminophen (Tylenol 650mg Supp) 650 mg RC Q6H PRN PRN Reason: Mild Pain/Headache/T above 101 Stop: 04/09/17 06:24 Amlodipine Besylate (Norvasc) 10 mg PO DAILY [facility] Stop: 04/11/17 16:59 Last Admin: 02/11/17 09:46 Dose: Not Given Dextrose/Sodium Chloride (D5-0.9%Ns) 1,000 mls @ 100 mls/hr IV .Q10H [facility] Stop: 04/09/17 06:29 Last Admin: 02/10/17 09:16 Dose: 100 mls/hr Piperacillin Sod/Tazobactam (Sod 4.5 gm/ Sodium Chloride) 100 mls @ 100 mls/hr IV Q8HR [facility] Stop: 04/09/17 20:59 Last Admin: 02/10/17 13:07 Dose: 100 mls/hr Lorazepam (Ativan) 1 mg IVP Q4H PRN; Protocol PRN Reason: Anxiety/Agitation Stop: 04/09/17 06:24 Last Admin: 02/11/17 02:54 Dose: 1 mg Metoprolol Tartrate (Lopressor) 25 mg PO BID [facility] Stop: 04/11/17 08:59 Last Admin: 02/11/17 17:49 Dose: 25 mg Morphine Sulfate (Morphine) 2 mg IVP Q4H PRN PRN Reason: Pain (Moderate) Stop: 04/09/17 06:24 Last Admin: 02/11/17 21:19 Dose: 2 mg Morphine Sulfate (Morphine) 4 mg IVP Q4H PRN PRN Reason: Severe Pain Stop: 04/09/17 06:24 Last Admin: 02/10/17 22:14 Dose: 4 mg Ondansetron HCl (Zofran) 4 mg IVP Q6H PRN PRN Reason: Nausea / Vomiting Stop: 04/09/17 06:24 Potassium Chloride (Klor-Con) 20 meq PO DAILY [facility] Stop: 04/12/17 15:14 Last Admin: 02/11/17 15:45 Dose: 20 meq General: no acute distress, well developed, well nourished HEENT: atraumatic, normocephalic, PERRLA, EOMI Neck: supple, no thyromegaly Cardiovascular: S1S2, regular Lungs: clear to auscultation bilaterally, clear to percussion Abdomen: soft, no tender, no distended Extremities: no cyanosis, no clubbing, no edema Neurological: awake, alert, oriented, CN 2-12 intact Skin: intact - Procedures Procedures: Procedures Procedure Code Date ERCP REMOVE DUCT CALCULI 33758 02/08/17 EXTIRPATION OF MATTER FROM COMMON BILE DUCT, ENDO [id number] 02/08/17 Infectious Disease Assmt/Plan - Assessment Assessment: 1. Cholecytitis. acute. Choledoholithiasis, Cholangitis. 2. Leukocytosis, sepsis. Improved. 3. ILD. - Plan Plan: will continue zosyn. ERCP performed today.
--- NOTE | 2017-02-12 03:18 | Progress Notes ---
SUBJECTIVE: The patient is awake, alert. The patient is on IV fluids. The patient is on IV antibiotics. The patient underwent ERCP today. The patient is awaiting cholecystectomy. VITAL SIGNS: Temperature 97.7, pulse 101, blood pressure 145/88, respiratory rate 18, O2 sat 94% on room air. LABORATORY DATA: Hematology: platelet count of 190, 12% lymphocytes. ESR 55, PT 11.3, INR 1.09. Chemistry: Sodium 142, potassium 3.7, chloride 107, bicarb 22, anion gap of 5.2, BUN 11, creatinine 0.4, glucose is 128, calcium 9.9. AST is 111, ALT is 193, alkaline phosphatase per labs, total protein 5.7, albumin 2.7, globulin 3.0, amylase is 123, lipase is 72. MICROBIOLOGY: No growth. RADIOLOGY: No new results. ASSESSMENT: 1. Status post endoscopic retrograde cholangiopancreatography, common bile duct stone. 2. Cholelithiasis. 3. Systemic inflammatory response syndrome. 4. Acute cholecystitis. 5. Transaminitis. 6. Hypertension. 7. Hyperkalemia. 8. Hyperglycemia. 9. Hypoalbuminemia (severe). 10. Pancreatitis (improved). PLAN: Continue current meds. Obtain labs a.m. The patient planned for possible laparoscopic cholecystectomy in a.m. We will obtain Nephrology consultation regarding the patient's persistent hyperkalemia. JOB# [id number] MTDD
[2017-02-12] MEDS: D5-0.9%NS 1,000 ML IV SCH ×2 (05:12→15:58)
[2017-02-12 06:29] LABS: % BASOPHILS 1.2 % (0.0-2.0); % LYMPHOCYTES 16.4 % (20.0-50.0); % MONOCYTES 11.1 % (2.0-10.0); % NEUTROPHILS 66.3 % (40.0-80.0); HEMATOCRIT 34.2 % (35.0-45.0); HEMOGLOBIN 11.7 gm/dL (11.7-16.1); MEAN CELL VOLUME 90.5 fl (81-100); MEAN CORPUSCULAR HGB CONC 34.2 pg (28.0-36.0); MEAN PLATELET VOLUME 9.2 fl; NEUTROPHILE ABSOLUTE 4.4 Th/cmm (1.8-8.0); PLATELET COUNT 186 Th/cmm (150-400); RED BLOOD COUNT 3.78 Mil/cmm (3.80-5.20); RED CELL DISTRIBUTION WIDTH 12.1 % (11.5-20.0)
[2017-02-12 06:52] LABS: ALB/GLOB RATIO 0.9 (1.0-1.8); ALKALINE PHOSPHATASE 350 U/L (34-104); ANION GAP 6.9 (7.0-16.0); BILIRUBIN,TOTAL 4.9 mg/dL (0.3-1.0); BUN - UREA NITROGEN 13 mg/dL (7-25); CALCIUM SERUM 9.1 mg/dL (8.6-10.3); CHLORIDE 108 mEq/L (98-107); CREATININE - SERUM 0.5 mg/dL (0.6-1.2); GLUCOSE 92 mg/dL (70-105); SGOT 100 U/L (13-39); SGPT/ALT 169 U/L (7-52); SODIUM SERUM 142 mEq/L (136-145)
[2017-02-12 07:12] LABS: WHITE BLOOD COUNT 6.6 Th/cmm (4.8-10.8)
[2017-02-12 07:16] LABS: POTASSIUM SERUM 2.9 mEq/L (3.5-5.1)
[2017-02-12] MEDS ORDERED: Potassium Chloride 40 MEQ, Lidocaine 1% 20mL Vial 25 MG in Sodium Chloride 0.9% 250 ML IV ONE ×2 (08:28→16:00)
[2017-02-12] MEDS: Potassium Chloride 20 mEq ER Tab PO SCH (10:52)
[2017-02-12] MEDS ORDERED: Bupivacaine 0.5% W/Ep 10 mL Vial ONE (12:03)
[2017-02-12] MEDS ORDERED: Midazolam 1mg/ml 2 ml vial IV ONE (12:16)
[2017-02-12] MEDS ORDERED: Meperidine 50 mg/mL 1mL Syr ONE (12:16)
--- NOTE | 2017-02-12 12:41 | Infectious Disease Prog Note ---
Infectious Disease Subjective - Review of Systems Service Date: 02/12/17 Subjective: For surgery today. Infectious Disease Objective - Results Result Diagrams: 02/12/17 06:15 02/12/17 11:39 Recent Labs: Laboratory Last Values WBC 6.6 Th/cmm (4.8-10.8) D 02/12/17 06:15 RBC 3.78 Mil/cmm (3.80-5.20) L 02/12/17 06:15 Hgb 11.7 gm/dL (11.7-16.1) 02/12/17 06:15 Hct 34.2 % (35.0-45.0) L 02/12/17 06:15 MCV 90.5 fl (81-100) 02/12/17 06:15 MCH 31.0 pg (27.0-31.0) 02/12/17 06:15 MCHC Differential 34.2 pg (28.0-36.0) 02/12/17 06:15 RDW 12.1 % (11.5-20.0) 02/12/17 06:15 Plt Count 186 Th/cmm (150-400) 02/12/17 06:15 MPV 9.2 fl 02/12/17 06:15 Neutrophils % 66.3 % (40.0-80.0) 02/12/17 06:15 Lymphocytes % 16.4 % (20.0-50.0) L 02/12/17 06:15 Monocytes % 11.1 % (2.0-10.0) H 02/12/17 06:15 Eosinophils % 5.0 % (0.0-5.0) 02/12/17 06:15 Basophils % 1.2 % (0.0-2.0) 02/12/17 06:15 Neutrophils (Manual) 79 % (40-80) 02/09/17 05:45 Lymphocytes 8 % (20-50) L 02/09/17 05:45 Monocytes 13 % (2-10) H 02/09/17 05:45 Platelet Estimate ADEQUATE (NORMAL) 02/09/17 05:45 Platelet Morphology NORMAL (NORMAL) 02/09/17 05:45 RBC Morph Micro Appear NORMAL (NORMAL) 02/09/17 05:45 ESR 55 mm/hr (0-30) H 02/11/17 05:36 PT 11.3 SECONDS (9.5-11.5) 02/11/17 05:36 INR 1.09 (0.5-1.4) 02/11/17 05:36 Sodium 142 mEq/L (136-145) 02/12/17 06:15 Potassium 3.1 mEq/L (3.5-5.1) L 02/12/17 11:39 Chloride 108 mEq/L (98-107) H 02/12/17 06:15 Carbon Dioxide 30.0 mEq/L (21.0-31.0) 02/12/17 06:15 Anion Gap 6.9 (7.0-16.0) L 02/12/17 06:15 BUN 13 mg/dL (7-25) 02/12/17 06:15 Creatinine 0.5 mg/dL (0.6-1.2) L 02/12/17 06:15 Est GFR ( Amer) TNP 02/12/17 06:15 Est GFR (Non-Af Amer) TNP 02/12/17 06:15 BUN/Creatinine Ratio 26.0 02/12/17 06:15 Glucose 92 mg/dL (70-105) 02/12/17 06:15 POC Glucose 158 MG/DL (70 - 105) H 02/08/17 21:26 Hemoglobin A1c % 5.2 % (4.0-6.0) 02/08/17 06:51 Calcium 9.1 mg/dL (8.6-10.3) 02/12/17 06:15 Magnesium 1.7 mg/dL (1.9-2.7) L 02/10/17 06:15 Total Bilirubin 4.9 mg/dL (0.3-1.0) H 02/12/17 06:15 AST 100 U/L (13-39) H 02/12/17 06:15 ALT 169 U/L (7-52) H 02/12/17 06:15 Alkaline Phosphatase 350 U/L (34-104) H 02/12/17 06:15 C-Reactive Protein 7.5 mg/dL (0.0-0.9) H 02/11/17 05:36 Total Protein 5.8 gm/dL (6.0-8.3) L 02/12/17 06:15 Albumin 2.7 gm/dL (3.7-5.3) L 02/12/17 06:15 Globulin 3.1 gm/dL 02/12/17 06:15 Albumin/Globulin Ratio 0.9 (1.0-1.8) L 02/12/17 06:15 Amylase 123 U/L (29-103) H 02/11/17 05:36 Lipase 72 U/L (11-82) 02/11/17 05:36 TSH 0.92 uIU/ml (0.34-5.60) 02/10/17 06:15 Urine Source CATH 02/08/17 08:30 Urine Color YELLOW 02/08/17 08:30 Urine Clarity SL. CLOUDY (CLEAR) 02/08/17 08:30 Urine pH 6.0 02/08/17 08:30 Ur Specific [place] (1.005-1.030) 02/08/17 08:30 Urine Protein 30 mg/dL (NEGATIVE) H 02/08/17 08:30 Urine Glucose (UA) NEGATIVE mg/dL (NEGATIVE) 02/08/17 08:30 Urine Ketones 15 mg/dL (NEGATIVE) H 02/08/17 08:30 Urine Blood SMALL (NEGATIVE) H 02/08/17 08:30 Urine Nitrate NEGATIVE (NEGATIVE) 02/08/17 08:30 Urine Bilirubin NEGATIVE (NEGATIVE) 02/08/17 08:30 Urine Urobilinogen 0.2 E.U./dL (0.2 - 1.0) 02/08/17 08:30 Ur Leukocyte Esterase NEGATIVE (NEGATIVE) 02/08/17 08:30 Urine RBC 0-2 /hpf (0-5) 02/08/17 08:30 Urine WBC 6-10 /hpf (0-5) H 02/08/17 08:30 Ur Epithelial Cells RARE /lpf (FEW) 02/08/17 08:30 Urine Bacteria OCCASIONAL /hpf (NONE SEEN) 02/08/17 08:30 - Physical Exam Vitals and I&O: Vital Signs Temp 99.6 F 02/12/17 12:00 Pulse 82 02/12/17 12:00 Resp 19 02/12/17 12:00 BP 157/87 02/12/17 12:00 Pulse Ox 97 02/12/17 12:00 Intake & Output 02/11/17 02/12/17 02/12/17 18:59 06:59 18:59 Intake Total 100 Balance 100 Intake: Intake, IV Amount 100 KCL 20mEq/100mL Premix 20 100 meq In 100 ml @ 50 mls/ hr IV Q2H [facility] Rx#: [id number] Active Medications: Current Medications Acetaminophen (Tylenol 650mg Supp) 650 mg RC Q6H PRN PRN Reason: Mild Pain/Headache/T above 101 Stop: 04/09/17 06:24 Amlodipine Besylate (Norvasc) 10 mg PO DAILY [facility] Stop: 04/11/17 16:59 Last Admin: 02/12/17 10:53 Dose: 10 mg Dextrose/Sodium Chloride (D5-0.9%Ns) 1,000 mls @ 100 mls/hr IV .Q10H [facility] Stop: 04/09/17 06:29 Last Admin: 02/12/17 05:12 Dose: 100 mls/hr Piperacillin Sod/Tazobactam (Sod 4.5 gm/ Sodium Chloride) 100 mls @ 100 mls/hr IV Q8HR [facility] Stop: 04/09/17 20:59 Last Admin: 02/10/17 13:07 Dose: 100 mls/hr Lorazepam (Ativan) 1 mg IVP Q4H PRN; Protocol PRN Reason: Anxiety/Agitation Stop: 04/09/17 06:24 Last Admin: 02/11/17 02:54 Dose: 1 mg Metoprolol Tartrate (Lopressor) 25 mg PO BID [facility] Stop: 04/11/17 08:59 Last Admin: 02/12/17 10:53 Dose: 25 mg Morphine Sulfate (Morphine) 2 mg IVP Q4H PRN PRN Reason: Pain (Moderate) Stop: 04/09/17 06:24 Last Admin: 02/11/17 21:19 Dose: 2 mg Morphine Sulfate (Morphine) 4 mg IVP Q4H PRN PRN Reason: Severe Pain Stop: 04/09/17 06:24 Last Admin: 02/10/17 22:14 Dose: 4 mg Ondansetron HCl (Zofran) 4 mg IVP Q6H PRN PRN Reason: Nausea / Vomiting Stop: 04/09/17 06:24 Potassium Chloride (Klor-Con) 20 meq PO DAILY [facility] Stop: 04/12/17 15:14 Last Admin: 02/12/17 10:52 Dose: 20 meq General: no acute distress, well developed, well nourished HEENT: atraumatic, normocephalic, PERRLA, EOMI Neck: supple Cardiovascular: S1S2, regular Lungs: clear to auscultation bilaterally, clear to percussion Abdomen: soft Extremities: no cyanosis, no clubbing, no edema - Procedures Procedures: Procedures Procedure Code Date ERCP REMOVE DUCT CALCULI 53528 02/08/17 EXTIRPATION OF MATTER FROM COMMON BILE DUCT, ENDO [id number] 02/08/17 Infectious Disease Assmt/Plan - Assessment Assessment: 1. Cholecytitis. acute. Choledoholithiasis, Cholangitis. 2. Leukocytosis, sepsis. Improved. 3. ILD. - Plan Plan: will continue zosyn. ERCP performed today.
[2017-02-12] MEDS ORDERED: Neostigmine 10mg/10mL Vial ONE ×2 (13:29→13:30)
[2017-02-12] MEDS: Morphine Sulfate 2 mg/mL 1mL Syr IVP PRN ×2 (15:54→20:25)
--- NOTE | 2017-02-12 18:37 | Operative Report ---
PREOPERATIVE DIAGNOSES: 1. Calculous cholecystitis. 2. Status post ERCP removal of common duct stones. 3. Urinary tract infection. POSTOPERATIVE DIAGNOSES: 1. Calculous cholecystitis. 2. Status post ERCP removal of common duct stones. 3. Urinary tract infection. OPERATION DONE: Laparoscopic cholecystectomy. SURGEON: Dr. Carisa Braun. FLOWER STRIPPER: Dr. Morillo. ANESTHESIA: General. ANESTHESIOLOGIST: Dr. Jimi Maria. ESTIMATED BLOOD LOSS: 20 mL. OPERATIVE FINDINGS: Markedly fibrotic and scar down the gallbladder with inflammation, severe at the infundibulum. Multiple stones with white bile content. Cultures were taken. Prior to surgery, informed consistent was discussed with the family at length about the possible complications in view of the markedly elevated liver function test and amylase and lipase at one time. ERCP showed multiple common duct stones with apparently whitish fluid liquid raising the question of purulent material. DESCRIPTION OF PROCEDURE: The patient was given general anesthesia. The abdomen was prepped with ChloraPrep and draped in appropriate manner. An infraumbilical incision was made along the skin line. A Veress needle was inserted and insufflation of CO2 was carried out successfully. A 10-mm trocar was placed through this and the scope was introduced. There was good visualization of the intraabdominal cavity. Another 10-mm trocar was placed in the upper abdomen at the midline and two 5-mm trocars were placed in the right flank. The operating table was elevated at the head and turned to the left side. The gallbladder was markedly fibrotic and rigid. The infundibulum was grasped and blunt dissection was carried out with dissector and irrigated. There were tissues leading to the infundibulum including cystic artery and cystic duct were clipped and divided. Cautery dissection was carried out upwards and entered into the gallbladder. The upper portion was done. Thick whitish material was seen and cultures were taken. The small gallstones spilled out and these were suctioned out. Following removal of the gallbladder with cautery, there was good hemostasis. Thorough irrigation was carried out until all visible stones were removed. The gallbladder was removed by enlarging the incision in the upper portion of the abdomen. Following satisfactory hemostasis, a Nikolas-Kwan drain was left inside the hepatic space. The incision in the upper abdomen was closed with interrupted sutures of #1 Vicryl. The trocar sites were infiltrated with 0.5% Marcaine and the incision closed with subcuticular suture of 4-0 Vicryl. The patient tolerated the procedure well. [facility]# [id number]
[2017-02-13] MEDS: Morphine Sulfate 2 mg/mL 1mL Syr IVP PRN ×5 (00:35→21:52)
[2017-02-13 06:36] LABS: % BASOPHILS 0.5 % (0.0-2.0); % EOSINOPHILS 2.1 % (0.0-5.0); % LYMPHOCYTES 9.2 % (20.0-50.0); % MONOCYTES 8.5 % (2.0-10.0); % NEUTROPHILS 79.7 % (40.0-80.0); HEMATOCRIT 35.6 % (35.0-45.0); HEMOGLOBIN 12.4 gm/dL (11.7-16.1); MEAN CELL VOLUME 89.6 fl (81-100); MEAN CORPUSCULAR HEMOGLOBIN 31.2 pg (27.0-31.0); MEAN CORPUSCULAR HGB CONC 34.8 pg (28.0-36.0); MEAN PLATELET VOLUME 9.9 fl; NEUTROPHILE ABSOLUTE 9.3 Th/cmm (1.8-8.0); PLATELET COUNT 197 Th/cmm (150-400); RED BLOOD COUNT 3.98 Mil/cmm (3.80-5.20)
[2017-02-13 06:39] LABS: WHITE BLOOD COUNT 11.7 Th/cmm (4.8-10.8)
[2017-02-13 06:45] LABS: ALB/GLOB RATIO 0.9 (1.0-1.8); ALKALINE PHOSPHATASE 298 U/L (34-104); ANION GAP 8.3 (7.0-16.0); BILIRUBIN,TOTAL 3.6 mg/dL (0.3-1.0); BUN - UREA NITROGEN 8 mg/dL (7-25); CALCIUM SERUM 8.9 mg/dL (8.6-10.3); CARBON DIOXIDE 29.5 mEq/L (21.0-31.0); CHLORIDE 103 mEq/L (98-107); CREATININE - SERUM 0.4 mg/dL (0.6-1.2); GLUCOSE 139 mg/dL (70-105); SGOT 79 U/L (13-39); SGPT/ALT 137 U/L (7-52); SODIUM SERUM 138 mEq/L (136-145)
[2017-02-13 07:11] LABS: POTASSIUM SERUM 2.8 mEq/L (3.5-5.1)
[2017-02-13] MEDS: Potassium Chloride 20 mEq ER Tab PO SCH (11:12)
--- NOTE | 2017-02-13 12:59 | General Progress Note ---
Subjective - Review of Systems Service Date: 02/13/17 Events since last encounter: labs improviing tolerating diet Objective - Results Result Diagrams: 02/13/17 06:10 02/13/17 06:10 Recent Labs: Laboratory Last Values WBC 11.7 Th/cmm (4.8-10.8) H D 02/13/17 06:10 RBC 3.98 Mil/cmm (3.80-5.20) 02/13/17 06:10 Hgb 12.4 gm/dL (11.7-16.1) 02/13/17 06:10 Hct 35.6 % (35.0-45.0) 02/13/17 06:10 MCV 89.6 fl (81-100) 02/13/17 06:10 MCH 31.2 pg (27.0-31.0) H 02/13/17 06:10 MCHC Differential 34.8 pg (28.0-36.0) 02/13/17 06:10 RDW 12.0 % (11.5-20.0) 02/13/17 06:10 Plt Count 197 Th/cmm (150-400) 02/13/17 06:10 MPV 9.9 fl 02/13/17 06:10 Neutrophils % 79.7 % (40.0-80.0) 02/13/17 06:10 Lymphocytes % 9.2 % (20.0-50.0) L 02/13/17 06:10 Monocytes % 8.5 % (2.0-10.0) 02/13/17 06:10 Eosinophils % 2.1 % (0.0-5.0) 02/13/17 06:10 Basophils % 0.5 % (0.0-2.0) 02/13/17 06:10 Neutrophils (Manual) 79 % (40-80) 02/09/17 05:45 Lymphocytes 8 % (20-50) L 02/09/17 05:45 Monocytes 13 % (2-10) H 02/09/17 05:45 Platelet Estimate ADEQUATE (NORMAL) 02/09/17 05:45 Platelet Morphology NORMAL (NORMAL) 02/09/17 05:45 RBC Morph Micro Appear NORMAL (NORMAL) 02/09/17 05:45 ESR 55 mm/hr (0-30) H 02/11/17 05:36 PT 11.3 SECONDS (9.5-11.5) 02/11/17 05:36 INR 1.09 (0.5-1.4) 02/11/17 05:36 Sodium 138 mEq/L (136-145) 02/13/17 06:10 Potassium 2.8 mEq/L (3.5-5.1) L* 02/13/17 06:10 Chloride 103 mEq/L (98-107) 02/13/17 06:10 Carbon Dioxide 29.5 mEq/L (21.0-31.0) 02/13/17 06:10 Anion Gap 8.3 (7.0-16.0) 02/13/17 06:10 BUN 8 mg/dL (7-25) 02/13/17 06:10 Creatinine 0.4 mg/dL (0.6-1.2) L 02/13/17 06:10 Est GFR ( Amer) TNP 02/13/17 06:10 Est GFR (Non-Af Amer) TNP 02/13/17 06:10 BUN/Creatinine Ratio 20.0 02/13/17 06:10 Glucose 139 mg/dL (70-105) H 02/13/17 06:10 POC Glucose 158 MG/DL (70 - 105) H 02/08/17 21:26 Hemoglobin A1c % 5.2 % (4.0-6.0) 02/08/17 06:51 Calcium 8.9 mg/dL (8.6-10.3) 02/13/17 06:10 Magnesium 1.7 mg/dL (1.9-2.7) L 02/10/17 06:15 Total Bilirubin 3.6 mg/dL (0.3-1.0) H 02/13/17 06:10 AST 79 U/L (13-39) H 02/13/17 06:10 ALT 137 U/L (7-52) H 02/13/17 06:10 Alkaline Phosphatase 298 U/L (34-104) H 02/13/17 06:10 C-Reactive Protein 7.5 mg/dL (0.0-0.9) H 02/11/17 05:36 Total Protein 5.5 gm/dL (6.0-8.3) L 02/13/17 06:10 Albumin 2.6 gm/dL (3.7-5.3) L 02/13/17 06:10 Globulin 2.9 gm/dL 02/13/17 06:10 Albumin/Globulin Ratio 0.9 (1.0-1.8) L 02/13/17 06:10 Amylase 123 U/L (29-103) H 02/11/17 05:36 Lipase 72 U/L (11-82) 02/11/17 05:36 TSH 0.92 uIU/ml (0.34-5.60) 02/10/17 06:15 Urine Source CATH 02/08/17 08:30 Urine Color YELLOW 02/08/17 08:30 Urine Clarity SL. CLOUDY (CLEAR) 02/08/17 08:30 Urine pH 6.0 02/08/17 08:30 Ur Specific [place] (1.005-1.030) 02/08/17 08:30 Urine Protein 30 mg/dL (NEGATIVE) H 02/08/17 08:30 Urine Glucose (UA) NEGATIVE mg/dL (NEGATIVE) 02/08/17 08:30 Urine Ketones 15 mg/dL (NEGATIVE) H 02/08/17 08:30 Urine Blood SMALL (NEGATIVE) H 02/08/17 08:30 Urine Nitrate NEGATIVE (NEGATIVE) 02/08/17 08:30 Urine Bilirubin NEGATIVE (NEGATIVE) 02/08/17 08:30 Urine Urobilinogen 0.2 E.U./dL (0.2 - 1.0) 02/08/17 08:30 Ur Leukocyte Esterase NEGATIVE (NEGATIVE) 02/08/17 08:30 Urine RBC 0-2 /hpf (0-5) 02/08/17 08:30 Urine WBC 6-10 /hpf (0-5) H 02/08/17 08:30 Ur Epithelial Cells RARE /lpf (FEW) 02/08/17 08:30 Urine Bacteria OCCASIONAL /hpf (NONE SEEN) 02/08/17 08:30 - Physical Exam Vitals and I&O: Vital Signs Temp 98.2 F 02/13/17 07:51 Pulse 82 02/13/17 11:14 Resp 18 02/13/17 07:51 BP 125/75 02/13/17 11:14 Pulse Ox 92 02/13/17 07:51 Intake & Output 02/12/17 02/13/17 02/13/17 18:59 06:59 18:59 Intake Total 1100 1600 Output Total 260 Balance 1100 1340 Intake: Intake, IV Amount 1100 1100 D5-0.9%Ns 1,000 ml @ 100 1000 1000 mls/hr IV .Q10H [facility] Rx#: [id number] Piperacillin Sodium/ 100 100 Tazobact 4.5 gm In Sodium Chloride 0.9% 100 ml @ 100 mls/hr IV Q8HR [facility] Rx #:[id number] Oral 500 Output: Drainage 260 Abdomen 260 Active Medications: Current Medications Acetaminophen (Tylenol 650mg Supp) 650 mg RC Q6H PRN PRN Reason: Mild Pain/Headache/T above 101 Stop: 04/09/17 06:24 Acetaminophen/Hydrocodone Bitart ([place] 10 Mg/325 Mg) 1 tab PO Q6H PRN PRN Reason: Pain (Severe) Stop: 04/14/17 11:52 Acetaminophen/Hydrocodone Bitart ([place] 5mg/325mg) 1 tab PO Q6H PRN PRN Reason: Moderate Pain Stop: 04/14/17 11:52 Amlodipine Besylate (Norvasc) 10 mg PO DAILY [facility] Stop: 04/11/17 16:59 Last Admin: 02/13/17 11:13 Dose: 10 mg Dextrose/Sodium Chloride (D5-0.9%Ns) 1,000 mls @ 100 mls/hr IV .Q10H [facility] Stop: 04/09/17 06:29 Last Infusion: 02/13/17 06:02 Dose: Infused Piperacillin Sod/Tazobactam (Sod 4.5 gm/ Sodium Chloride) 100 mls @ 100 mls/hr IV Q8HR [facility] Stop: 04/09/17 20:59 Last Admin: 02/13/17 12:48 Dose: 100 mls/hr Lorazepam (Ativan) 1 mg IVP Q4H PRN; Protocol PRN Reason: Anxiety/Agitation Stop: 04/09/17 06:24 Last Admin: 02/11/17 02:54 Dose: 1 mg Losartan Potassium (Cozaar) 25 mg PO DAILY [facility] Stop: 04/14/17 08:59 Last Admin: 02/13/17 11:14 Dose: 25 mg Metoprolol Tartrate (Lopressor) 25 mg PO BID [facility] Stop: 04/11/17 08:59 Last Admin: 02/13/17 11:12 Dose: 25 mg Morphine Sulfate (Morphine) 2 mg IVP Q4H PRN PRN Reason: Pain (Severe) Stop: 04/09/17 06:24 Ondansetron HCl (Zofran) 4 mg IVP Q6H PRN PRN Reason: Nausea / Vomiting Stop: 04/09/17 06:24 Potassium Chloride (Klor-Con) 40 meq PO DAILY [facility] Stop: 04/15/17 08:59 - Procedures Procedures: Procedures Procedure Code Date ERCP REMOVE DUCT CALCULI 93771 02/08/17 EXTIRPATION OF MATTER FROM COMMON BILE DUCT, ENDO [id number] 02/08/17
--- NOTE | 2017-02-13 13:38 | Infectious Disease Prog Note ---
Infectious Disease Subjective - Review of Systems Service Date: 02/13/17 Subjective: had lap wilner . doing well. Infectious Disease Objective - Results Result Diagrams: 02/13/17 06:10 02/13/17 06:10 Recent Labs: Laboratory Last Values WBC 11.7 Th/cmm (4.8-10.8) H D 02/13/17 06:10 RBC 3.98 Mil/cmm (3.80-5.20) 02/13/17 06:10 Hgb 12.4 gm/dL (11.7-16.1) 02/13/17 06:10 Hct 35.6 % (35.0-45.0) 02/13/17 06:10 MCV 89.6 fl (81-100) 02/13/17 06:10 MCH 31.2 pg (27.0-31.0) H 02/13/17 06:10 MCHC Differential 34.8 pg (28.0-36.0) 02/13/17 06:10 RDW 12.0 % (11.5-20.0) 02/13/17 06:10 Plt Count 197 Th/cmm (150-400) 02/13/17 06:10 MPV 9.9 fl 02/13/17 06:10 Neutrophils % 79.7 % (40.0-80.0) 02/13/17 06:10 Lymphocytes % 9.2 % (20.0-50.0) L 02/13/17 06:10 Monocytes % 8.5 % (2.0-10.0) 02/13/17 06:10 Eosinophils % 2.1 % (0.0-5.0) 02/13/17 06:10 Basophils % 0.5 % (0.0-2.0) 02/13/17 06:10 Neutrophils (Manual) 79 % (40-80) 02/09/17 05:45 Lymphocytes 8 % (20-50) L 02/09/17 05:45 Monocytes 13 % (2-10) H 02/09/17 05:45 Platelet Estimate ADEQUATE (NORMAL) 02/09/17 05:45 Platelet Morphology NORMAL (NORMAL) 02/09/17 05:45 RBC Morph Micro Appear NORMAL (NORMAL) 02/09/17 05:45 ESR 55 mm/hr (0-30) H 02/11/17 05:36 PT 11.3 SECONDS (9.5-11.5) 02/11/17 05:36 INR 1.09 (0.5-1.4) 02/11/17 05:36 Sodium 138 mEq/L (136-145) 02/13/17 06:10 Potassium 2.8 mEq/L (3.5-5.1) L* 02/13/17 06:10 Chloride 103 mEq/L (98-107) 02/13/17 06:10 Carbon Dioxide 29.5 mEq/L (21.0-31.0) 02/13/17 06:10 Anion Gap 8.3 (7.0-16.0) 02/13/17 06:10 BUN 8 mg/dL (7-25) 02/13/17 06:10 Creatinine 0.4 mg/dL (0.6-1.2) L 02/13/17 06:10 Est GFR ( Amer) TNP 02/13/17 06:10 Est GFR (Non-Af Amer) TNP 02/13/17 06:10 BUN/Creatinine Ratio 20.0 02/13/17 06:10 Glucose 139 mg/dL (70-105) H 02/13/17 06:10 POC Glucose 158 MG/DL (70 - 105) H 02/08/17 21:26 Hemoglobin A1c % 5.2 % (4.0-6.0) 02/08/17 06:51 Calcium 8.9 mg/dL (8.6-10.3) 02/13/17 06:10 Magnesium 1.7 mg/dL (1.9-2.7) L 02/10/17 06:15 Total Bilirubin 3.6 mg/dL (0.3-1.0) H 02/13/17 06:10 AST 79 U/L (13-39) H 02/13/17 06:10 ALT 137 U/L (7-52) H 02/13/17 06:10 Alkaline Phosphatase 298 U/L (34-104) H 02/13/17 06:10 C-Reactive Protein 7.5 mg/dL (0.0-0.9) H 02/11/17 05:36 Total Protein 5.5 gm/dL (6.0-8.3) L 02/13/17 06:10 Albumin 2.6 gm/dL (3.7-5.3) L 02/13/17 06:10 Globulin 2.9 gm/dL 02/13/17 06:10 Albumin/Globulin Ratio 0.9 (1.0-1.8) L 02/13/17 06:10 Amylase 123 U/L (29-103) H 02/11/17 05:36 Lipase 72 U/L (11-82) 02/11/17 05:36 TSH 0.92 uIU/ml (0.34-5.60) 02/10/17 06:15 Urine Source CATH 02/08/17 08:30 Urine Color YELLOW 02/08/17 08:30 Urine Clarity SL. CLOUDY (CLEAR) 02/08/17 08:30 Urine pH 6.0 02/08/17 08:30 Ur Specific [place] (1.005-1.030) 02/08/17 08:30 Urine Protein 30 mg/dL (NEGATIVE) H 02/08/17 08:30 Urine Glucose (UA) NEGATIVE mg/dL (NEGATIVE) 02/08/17 08:30 Urine Ketones 15 mg/dL (NEGATIVE) H 02/08/17 08:30 Urine Blood SMALL (NEGATIVE) H 02/08/17 08:30 Urine Nitrate NEGATIVE (NEGATIVE) 02/08/17 08:30 Urine Bilirubin NEGATIVE (NEGATIVE) 02/08/17 08:30 Urine Urobilinogen 0.2 E.U./dL (0.2 - 1.0) 02/08/17 08:30 Ur Leukocyte Esterase NEGATIVE (NEGATIVE) 02/08/17 08:30 Urine RBC 0-2 /hpf (0-5) 02/08/17 08:30 Urine WBC 6-10 /hpf (0-5) H 02/08/17 08:30 Ur Epithelial Cells RARE /lpf (FEW) 02/08/17 08:30 Urine Bacteria OCCASIONAL /hpf (NONE SEEN) 02/08/17 08:30 - Physical Exam Vitals and I&O: Vital Signs Temp 98.2 F 02/13/17 07:51 Pulse 82 02/13/17 11:14 Resp 18 02/13/17 07:51 BP 125/75 02/13/17 11:14 Pulse Ox 92 02/13/17 07:51 Intake & Output 02/12/17 02/13/1702/13/17 18:59 06:59 18:59 Intake Total 1100 1600 Output Total 260 Balance 1100 1340 Intake: Intake, IV Amount 1100 1100 D5-0.9%Ns 1,000 ml @ 100 1000 1000 mls/hr IV .Q10H [facility] Rx#: [id number] Piperacillin Sodium/ 100 100 Tazobact 4.5 gm In Sodium Chloride 0.9% 100 ml @ 100 mls/hr IV Q8HR [facility] Rx #:[id number] Oral 500 Output: Drainage 260 Abdomen 260 Active Medications: Current Medications Acetaminophen (Tylenol 650mg Supp) 650 mg RC Q6H PRN PRN Reason: Mild Pain/Headache/T above 101 Stop: 04/09/17 06:24 Acetaminophen/Hydrocodone Bitart ([place] 10 Mg/325 Mg) 1 tab PO Q6H PRN PRN Reason: Pain (Severe) Stop: 04/14/17 11:52 Acetaminophen/Hydrocodone Bitart ([place] 5mg/325mg) 1 tab PO Q6H PRN PRN Reason: Moderate Pain Stop: 04/14/17 11:52 Amlodipine Besylate (Norvasc) 10 mg PO DAILY [facility] Stop: 04/11/17 16:59 Last Admin: 02/13/17 11:13 Dose: 10 mg Dextrose/Sodium Chloride (D5-0.9%Ns) 1,000 mls @ 100 mls/hr IV .Q10H [facility] Stop: 04/09/17 06:29 Last Infusion: 02/13/17 06:02 Dose: Infused Piperacillin Sod/Tazobactam (Sod 4.5 gm/ Sodium Chloride) 100 mls @ 100 mls/hr IV Q8HR [facility] Stop: 04/09/17 20:59 Last Admin: 02/13/17 12:48 Dose: 100 mls/hr Lorazepam (Ativan) 1 mg IVP Q4H PRN; Protocol PRN Reason: Anxiety/Agitation Stop: 04/09/17 06:24 Last Admin: 02/11/17 02:54 Dose: 1 mg Losartan Potassium (Cozaar) 25 mg PO DAILY [facility] Stop: 04/14/17 08:59 Last Admin: 02/13/17 11:14 Dose: 25 mg Metoprolol Tartrate (Lopressor) 25 mg PO BID [facility] Stop: 04/11/17 08:59 Last Admin: 03/17/17 11:12 Dose: 25 mg Morphine Sulfate (Morphine) 2 mg IVP Q4H PRN PRN Reason: Pain (Severe) Stop: 04/09/17 06:24 Ondansetron HCl (Zofran) 4 mg IVP Q6H PRN PRN Reason: Nausea / Vomiting Stop: 04/09/17 06:24 Potassium Chloride (Klor-Con) 40 meq PO DAILY [facility] Stop: 04/15/17 08:59 General: no acute distress, well developed, well nourished HEENT: atraumatic, normocephalic, PERRLA Neck: supple, thyromegaly, lymphadenopathy Cardiovascular: S1S2, regular Lungs: clear to auscultation bilaterally, clear to percussion Abdomen: soft, drain (X1 serous fluid.) Extremities: no cyanosis, no clubbing, no edema Neurological: awake, alert, oriented Skin: intact - Procedures Procedures: Procedures Procedure Code Date ERCP REMOVE DUCT CALCULI 87567 02/08/17 EXTIRPATION OF MATTER FROM COMMON BILE DUCT, ENDO [id number] 02/08/17 Infectious Disease Assmt/Plan - Assessment Assessment: 1. Cholecytitis. acute. Choledoholithiasis, Cholangitis. 2. Leukocytosis, sepsis. Improved. 3. ILD. 4. S/p lap wilner POD#1 - Plan Plan: will continue zosyn. when stable may change antibiotics to levaquin and flagyl po for 7 days from now.
[2017-02-13] MEDS: KCL 20mEq/100mL Premix 20 MEQ/100 ML PIGGYBACK IV SCH ×2 (18:50→20:16)
--- NOTE | 2017-02-14 02:17 | Progress Notes ---
SUBJECTIVE: The patient is awake, alert. The patient still complains of abdominal pain. The patient is on chronic pain medications. The patient underwent laparoscopic cholecystectomy on 02/12/2017. PHYSICAL EXAMINATION: VITAL SIGNS: Temperature 98.1, pulse 70, blood pressure 140/90, respiratory rate 18, O2 saturation 97% on room air. CARDIOVASCULAR: S1, S2. RESPIRATORY: Clear. GASTROINTESTINAL: Soft, tender in the right upper quadrant area, nondistended. Positive bowel sounds. LABORATORY DATA: Hematology, WBC 6.6, hemoglobin 11.7, hematocrit 34.2, platelet count of 186, 16% lymphocytes, 11% monocytes. Chemistry: Sodium 140, potassium 2.9, chloride per labs, bicarb 30, anion gap of 6.9, BUN 13, creatinine 0.5. GFR unavailable. Glucose is 92, calcium 9.1, total bilirubin 4.9. AST per labs, ALT per labs, alkaline phosphatase 350, total protein 5.8, albumin 2.7 , globulin 3.1. Microbiology: MRSA screen from 02/08 negative. Blood culture from 02/10 shows no growth. ASSESSMENT: 1. Status post laparoscopic cholecystectomy. 2. Calculous cholecystitis. 3. Leukocytosis. 4. Sepsis. 5. Status post endoscopic retrograde cholangiopancreatography. 6. Common bile duct stone. 7. Cholelithiasis. 8. Acute cholecystitis. 9. Transaminitis. 10. Hypertension. 11. Hypokalemia. 12. Hypoalbuminemia. 13. Acute pancreatitis. PLAN: Continue current medication and treatment. Obtain labs in the a.m. Further per consultants. JOB# [id number] MTDD
--- NOTE | 2017-02-14 02:25 | Progress Notes ---
SUBJECTIVE: The patient is awake and alert. The patient is on clear liquid diet. The patient underwent laparoscopic cholecystectomy yesterday. The patient is on IVP medications. The patient is on IV antibiotics. The patient is on IV fluids. OBJECTIVE: VITAL SIGNS: Temperature 98.2, pulse 82, blood pressure 125/75, respiratory rate 18, and O2 sat is 92% on room air. CARDIOVASCULAR: S1 and S2. RESPIRATORY: Clear. GASTROINTESTINAL: Soft. Tender in right upper quadrant. Nondistended. Positive bowel sounds. LABORATORY DATA: Hematology: WBC 11.7, hemoglobin 12.4, hematocrit 35.6, platelet count 197,000, and 9% lymphocytes. Chemistry: Sodium 138, potassium 2.8, chloride 103, bicarb 29, anion gap 8.3, BUN 8, creatinine per labs. GFR unavailable. Glucose 139, calcium 8.9, total bili 3.6, AST 79, ALT 137, alk phos 298, albumin 2.6, and globulin 2.9. Microbiology 02/08/2017 is negative. Blood cultures from 02/10/2017 shows no growth. ASSESSMENT: 1. Sepsis. 2. Leukocytosis. 3. Hypokalemia. 5. Transaminitis. 6. Hypoalbuminemia. 7. Protein-calorie malnutrition (severe). 8. Status post laparoscopic cholecystectomy. 9. Status post endoscopic retrograde cholangiopancreatography. 10. Common bile duct stone, cholelithiasis. 11. Acute cholecystitis. 12. Hypertension. 13. Acute pancreatitis (resolved). PLAN: Continue current medication and treatment. Obtain labs in a.m. Advance diet. We will increase oral potassium to 40 mEq daily. We will start the patient on oral pain medications. Further recommendations per consult. Obtain Nephrology consultation. JOB# [id number] MTDTyler
[2017-02-14] MEDS: Morphine Sulfate 2 mg/mL 1mL Syr IVP PRN (04:35)
[2017-02-14] MEDS: D5-0.9%NS 1,000 ML IV SCH ×2 (04:37→18:28)
[2017-02-14 07:05] LABS: HEMOGLOBIN 11.7 gm/dL (11.7-16.1)
[2017-02-14 07:18] LABS: ALB/GLOB RATIO 0.8 (1.0-1.8); ALKALINE PHOSPHATASE 235 U/L (34-104); ANION GAP 6.1 (7.0-16.0); BILIRUBIN,TOTAL 3.2 mg/dL (0.3-1.0); BUN - UREA NITROGEN 6 mg/dL (7-25); CALCIUM SERUM 9.1 mg/dL (8.6-10.3); CARBON DIOXIDE 30.7 mEq/L (21.0-31.0); CHLORIDE 103 mEq/L (98-107); CREATININE - SERUM 0.4 mg/dL (0.6-1.2); GLUCOSE 124 mg/dL (70-105); SGOT 46 U/L (13-39); SGPT/ALT 97 U/L (7-52); SODIUM SERUM 137 mEq/L (136-145)
[2017-02-14 07:47] LABS: HEMATOCRIT 33.9 % (35.0-45.0); MEAN CELL VOLUME 89.6 fl (81-100); MEAN CORPUSCULAR HGB CONC 34.6 pg (28.0-36.0); PLATELET COUNT 187 Th/cmm (150-400); POTASSIUM SERUM 2.8 mEq/L (3.5-5.1); RED BLOOD COUNT 3.78 Mil/cmm (3.80-5.20); RED CELL DISTRIBUTION WIDTH 12.1 % (11.5-20.0)
[2017-02-14 07:59] LABS: WHITE BLOOD COUNT 12.1 Th/cmm (4.8-10.8)
[2017-02-14] MEDS: Hydrocodone/APAP 10 mg/325 mg Tab PO PRN ×2 (08:38→20:35)
[2017-02-14 08:58] LABS: EOSINOPHIL 5 % (0-5); NEUTROPHILS 81 % (40-80); PLATELET ESTIMATE ADEQUATE (NORMAL); PLATELET MORPHOLOGY NORMAL (NORMAL); TOTAL CELLS COUNTED 100
[2017-02-14] MEDS ORDERED: Potassium Chloride 20 mEq ER Tab PO SCH (09:00)
[2017-02-14] MEDS: KCL 20mEq/100mL Premix 40 MEQ/200 ML PIGGYBACK IV SCH (10:31)
--- NOTE | 2017-02-14 12:47 | General Progress Note ---
Subjective - Review of Systems Service Date: 02/14/17 Events since last encounter: slow decline of LFT K low, getting K jean marie DILL dr. 160 cc, serous tolerating oral intake Objective - Results Result Diagrams: 02/14/17 06:37 02/14/17 06:37 Recent Labs: Laboratory Last Values WBC 12.1 Th/cmm (4.8-10.8) H 02/14/17 06:37 RBC 3.78 Mil/cmm (3.80-5.20) L 02/14/17 06:37 Hgb 11.7 gm/dL (11.7-16.1) 02/14/17 06:37 Hct 33.9 % (35.0-45.0) L 02/14/17 06:37 MCV 89.6 fl (81-100) 02/14/17 06:37 MCH 31.0 pg (27.0-31.0) 02/14/17 06:37 MCHC Differential 34.6 pg (28.0-36.0) 02/14/17 06:37 RDW 12.1 % (11.5-20.0) 02/14/17 06:37 Plt Count 187 Th/cmm (150-400) 02/14/17 06:37 MPV 10.0 fl 02/14/17 06:37 Neutrophils % 79.7 % (40.0-80.0) 02/13/17 06:10 Lymphocytes % 9.2 % (20.0-50.0) L 02/13/17 06:10 Monocytes % 8.5 % (2.0-10.0) 02/13/17 06:10 Eosinophils % 2.1 % (0.0-5.0) 02/13/17 06:10 Basophils % 0.5 % (0.0-2.0) 02/13/17 06:10 Neutrophils (Manual) 81 % (40-80) H 02/14/17 06:37 Lymphocytes 5 % (20-50) L 02/14/17 06:37 Monocytes 9 % (2-10) 02/14/17 06:37 Eosinophils 5 % (0-5) 02/14/17 06:37 Platelet Estimate ADEQUATE (NORMAL) 02/14/17 06:37 Platelet Morphology NORMAL (NORMAL) 02/14/17 06:37 RBC Morph Micro Appear NORMAL (NORMAL) 02/14/17 06:37 ESR 39 mm/hr (0-30) H 02/14/17 06:37 PT 11.3 SECONDS (9.5-11.5) 02/11/17 05:36 INR 1.09 (0.5-1.4) 02/11/17 05:36 Sodium 137 mEq/L (136-145) 02/14/17 06:37 Potassium 2.8 mEq/L (3.5-5.1) L* 02/14/17 06:37 Chloride 103 mEq/L (98-107) 02/14/17 06:37 Carbon Dioxide 30.7 mEq/L (21.0-31.0) 02/14/17 06:37 Anion Gap 6.1 (7.0-16.0) L 02/14/17 06:37 BUN 6 mg/dL (7-25) L 02/14/17 06:37 Creatinine 0.4 mg/dL (0.6-1.2) L 02/14/17 06:37 Est GFR ( Amer) TNP 02/14/17 06:37 Est GFR (Non-Af Amer) TNP 02/14/17 06:37 BUN/Creatinine Ratio 15.0 02/14/17 06:37 Glucose 124 mg/dL (70-105) H 02/14/17 06:37 POC Glucose 158 MG/DL (70 - 105) H 02/08/17 21:26 Hemoglobin A1c % 5.2 % (4.0-6.0) 02/08/17 06:51 Calcium 9.1 mg/dL (8.6-10.3) 02/14/17 06:37 Magnesium 1.7 mg/dL (1.9-2.7) L 02/10/17 06:15 Total Bilirubin 3.2 mg/dL (0.3-1.0) H 02/14/17 06:37 AST 46 U/L (13-39) H 02/14/17 06:37 ALT 97 U/L (7-52) H 02/14/17 06:37 Alkaline Phosphatase 235 U/L (34-104) H 02/14/17 06:37 C-Reactive Protein 7.5 mg/dL (0.0-0.9) H 02/11/17 05:36 Total Protein 5.2 gm/dL (6.0-8.3) L 02/14/17 06:37 Albumin 2.3 gm/dL (3.7-5.3) L 02/14/17 06:37 Globulin 2.9 gm/dL 02/14/17 06:37 Albumin/Globulin Ratio 0.8 (1.0-1.8) L 02/14/17 06:37 Amylase 123 U/L (29-103) H 02/11/17 05:36 Lipase 72 U/L (11-82) 02/11/17 05:36 TSH 0.92 uIU/ml (0.34-5.60) 02/10/17 06:15 Urine Source CATH 02/08/17 08:30 Urine Color YELLOW 02/08/17 08:30 Urine Clarity SL. CLOUDY (CLEAR) 02/08/17 08:30 Urine pH 6.0 02/08/17 08:30 Ur Specific [place] (1.005-1.030) 02/08/17 08:30 Urine Protein 30 mg/dL (NEGATIVE) H 02/08/17 08:30 Urine Glucose (UA) NEGATIVE mg/dL (NEGATIVE) 02/08/17 08:30 Urine Ketones 15 mg/dL (NEGATIVE) H 02/08/17 08:30 Urine Blood SMALL (NEGATIVE) H 02/08/17 08:30 Urine Nitrate NEGATIVE (NEGATIVE) 02/08/17 08:30 Urine Bilirubin NEGATIVE (NEGATIVE) 02/08/17 08:30 Urine Urobilinogen 0.2 E.U./dL (0.2 - 1.0) 02/08/17 08:30 Ur Leukocyte Esterase NEGATIVE (NEGATIVE) 02/08/17 08:30 Urine RBC 0-2 /hpf (0-5) 02/08/17 08:30 Urine WBC 6-10 /hpf (0-5) H 02/08/17 08:30 Ur Epithelial Cells RARE /lpf (FEW) 02/08/17 08:30 Urine Bacteria OCCASIONAL /hpf (NONE SEEN) 02/08/17 08:30 Ur Random Potassium 22.0 mmol/L 02/14/17 09:25 - Physical Exam Vitals and I&O: Vital Signs Temp 98.1 F 02/14/17 08:18 Pulse 79 02/14/17 08:38 Resp 18 02/14/17 08:18 BP 144/79 02/14/17 08:38 Pulse Ox 94 02/14/17 08:18 Intake & Output 02/13/17 02/14/17 02/14/17 18:59 06:59 18:59 Intake Total 500 171.667 Output Total 800 100 Balance -300 171.667 -100 Intake: Intake, IV Amount 100 171.667 KCL 20mEq/100mL Premix 20 71.667 meq In 100 ml @ 50 mls/ hr IV Q2H [facility] Rx#: [id number] Piperacillin Sodium/ 100 100 Tazobact 4.5 gm In Sodium Chloride 0.9% 100 ml @ 100 mls/hr IV Q8HR [facility] Rx #:[id number] Oral 400 Output: Drainage 100 100 Abdomen 100 100 Urine 700 Other: # Voids 4 Active Medications: Current Medications Acetaminophen (Tylenol 650mg Supp) 650 mg RC Q6H PRN PRN Reason: Mild Pain/Headache/T above 101 Stop: 04/09/17 06:24 Acetaminophen/Hydrocodone Bitart (Talpa 10 Mg/325 Mg) 1 tab PO Q6H PRN PRN Reason: Pain (Severe) Stop: 04/14/17 11:52 Last Admin: 02/14/17 08:38 Dose: 1 tab Acetaminophen/Hydrocodone Bitart (Talpa 5mg/325mg) 1 tab PO Q6H PRN PRN Reason: Moderate Pain Stop: 04/14/17 11:52 Amlodipine Besylate (Norvasc) 10 mg PO DAILY [facility] Stop: 04/11/17 16:59 Last Admin: 02/14/17 08:37 Dose: 10 mg Dextrose/Sodium Chloride (D5-0.9%Ns) 1,000 mls @ 100 mls/hr IV .Q10H [facility] Stop: 04/09/17 06:29 Last Admin: 02/14/17 04:37 Dose: 100 mls/hr Potassium Chloride (Potassium Chloride) 40 meq in 200 mls @ 50 mls/hr IV 1015 [facility] Stop: 02/15/17 14:14 Last Admin: 02/14/17 10:31 Dose: 50 mls/hr Piperacillin Sod/Tazobactam (Sod 4.5 gm/ Sodium Chloride) 100 mls @ 100 mls/hr IV Q8HR [facility] Stop: 04/15/17 12:59 Last Admin: 02/14/17 12:41 Dose: 100 mls/hr Lorazepam (Ativan) 1 mg IVP Q4H PRN; Protocol PRN Reason: Anxiety/Agitation Stop: 04/09/17 06:24 Last Admin: 02/11/17 02:54 Dose: 1 mg Losartan Potassium (Cozaar) 25 mg PO DAILY [facility] Stop: 04/14/17 08:59 Last Admin: 02/14/17 08:38 Dose: 25 mg Metoprolol Tartrate (Lopressor) 25 mg PO BID [facility] Stop: 04/11/17 08:59 Last Admin: 02/14/17 08:38 Dose: 25 mg Morphine Sulfate (Morphine) 2 mg IVP Q4H PRN PRN Reason: Pain (Severe) Stop: 04/09/17 06:24 Last Admin: 02/14/17 04:35 Dose: 2 mg Ondansetron HCl (Zofran) 4 mg IVP Q6H PRN PRN Reason: Nausea / Vomiting Stop: 04/09/17 06:24 Potassium Chloride (Klor-Con) 40 meq PO DAILY [facility] Stop: 04/15/17 08:59 Last Admin: 02/14/17 08:37 Dose: 40 meq - Procedures Procedures: Procedures Procedure Code Date ERCP REMOVE DUCT CALCULI 71448 02/08/17 EXTIRPATION OF MATTER FROM COMMON BILE DUCT, ENDO [id number] 02/08/17 LAPAROSCOPIC CHOLECYSTECTOMY 06443 02/08/17 RESECTION OF GALLBLADDER, PERCUTANEOUS ENDOSCOPIC APPROACH [id number] 02/08/17 Nutritional Asmnt/Malnutr-PDOC - Dietary Evaluation Malnutrition Findings (Please click <Entered> for more info): Nutritional Asmnt/Malnutrition Start: 02/13/17 17: 05 Text: Status: Complete Freq: Document 02/13/17 17:05 [facility] (Rec: 02/13/17 17:22 [facility] [id number]) Nutritional Asmnt/Malnutrition Patient General Information Nutritional Screening Diagnosis Diagnosis Systemic inflammatory response syndrome, acute cholecystitis Pertinent Medical Hx/Surgical Hx No PMH or PSH. Subjective Information Pt is a 76-year-old female admitted with chief complaint of abdominal pain for 2 days associated with nausea and vomiting. S/P ERCP with sphincterotomy and removal of stones (02/11) and laparoscopic cholecystectomy (02/12). Pt is currently tolerating clear liquid diet with no nausea or vomiting. and son at bedside. Pt speaks Citizen [place] but mostly [place]ic. Son at bedside to translate and answer questions. Pt lost 1# in the last few weeks. Wt of 136#/61.7 kg measured at [place] on 02/07. Pt appears well nourished with no signs of muscle or fat depletion. Current Diet Order/ Nutrition Support Clear liquid Patient / S.O Can Pertinent Medications D5-0.9 NS, Cozaar, Morphine, Zosyn, KCl, Klor-Con Pertinent Labs (02/11) Amylase 123H (02/13) Glucose 139H (pt receiving D5 infusion), Total Bilirubin 3.6H (decreased), AST 79H and ALT 137H ( decreased), Alkaline Phosphatase 298H (decreased) Nutritional Hx/Data Height 1.65 m Height (Calculated Centimeters) 165.1 Current Weight (lbs) 61.689 kg Weight (Calculated Kilograms) 61.7 Weight (Calculated Grams) 71805.6 Usual body Weight (lbs) 137 % Usual Body Weight 99 [place] Body Weight 125 % [place] Body Weight 109 Recent Weight Change Yes Weight Status Approriate GI Symptoms GI Symptoms None Food Allergies No Cultural/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 Son reports pt does not prepare foods with lard but uses extra virgin olive oil when cooking and eating. Usual diet at home Regular Skin Integrity/Comment: Bhavin Baljeet. No skin breakdown. Current %PO Good (75-100%) Estimated Nutritional Goals BEE in Kcals: Using Current wt Calories/Kcals/Kg Based on CBW 61.7 kg Kcals Calculated 8149-6084 kcals/day (25-30 kcals/kg) Protein: Using Current wt Protein g/kg: Based on CBW 61.7 kg with consideration of age s/p surgery Protein Calculated 62-74 gm/day (1-1.2 gm/kg) Fluid: ml 3900-1217 ml/day (30-35 ml/kg) Nutritional Problem 1. Problem Problem Inadequate energy and protein intake related to Etiology possible altered GI function s /p laparoscopic cholecystectomy as evidenced by Signs/Symptoms: clear liquid diet is not adequate to meet estimated nutritional needs. Malnutrition Alert Is there a minimum of two criteria No selected? Query Text:Check all the applicable criteria. A minimum of two criteria are recommended for diagnosis of either severe or non-severe malnutrition. Malnutrition Related to Morbid Obesity Malnutrition related to morbid obesity No Intervention/Recommendation Recommendations by RD Dietary Education by RD1 Increase Calorie Intake Comments 1. Recommend advance to full liquid diet, as tolerated. RD discussed with Dr. Gillette and agreed. Pt and family informed. 2. Advance as tolerated to goal diet of soft/bland, low fat diet. 3. Educated pt, , and son on progression of liquid diet, low fat diet, low fiber diet with slow advancement to high fiber diet as tolerated. Son and pt verbalized understanding. Handouts in Citizen [place] and [place]ic also provided. Expected Outcomes/Goals Expected Outcomes/Goals Have pt meet at least 75% of estimated nutritional needs with acceptable tolerance. Physician Parameters for PEM Normal Weight % 90% - 110% (Normal) Body Mass Index (BMI) 19 - 24 (Normal) Serum Albumin (g/dl) 2.4 - 3.0 (Moderate) 02/13/17 17:21 Dietitian Notes by Shadia Patel Nutrition Note Initial Nutrition Assessment completed by Shadia Patel on 02/13/17. Please refer to nutrition assessment under Patient Care tab of EMR. Nutrition Interventions: 1. Recommend advance to full liquid diet, as tolerated. RD discussed with Dr. Gillette and agreed. Pt and family informed diet is advanced for dinner tonight. 2. Advance as tolerated to goal diet of soft/bland, low fat diet. 3. Educated pt, , and son on progression of liquid diet, low fat diet, low fiber diet with slow advancement to high fiber diet as tolerated. Son and pt verbalized understanding. Handouts in [place] and [place]ic also provided. Initialized on 02/13/17 17:21 - END OF NOTE
[2017-02-14] MEDS: Hydrocodone/APAP 5mg/325mg Tab PO PRN (13:53)
--- NOTE | 2017-02-14 17:02 | Progress Notes ---
SUBJECTIVE: The patient is awake, alert. The patient is on oxygen nasal cannula. The patient is on IV fluids. The patient is on IV antibiotics. The patient is tolerating p.o. intake. PHYSICAL EXAMINATION: VITAL SIGNS: Temperature is 98.1, pulse 89, blood pressure 144/79, respiratory rate 18, O2 sat 94% on oxygen via nasal cannula. CARDIOVASCULAR: S1, S2. RESPIRATORY: Clear. GASTROINTESTINAL: Soft, positive bowel sounds. LABORATORY DATA: Hematology; WBC 12.1, hemoglobin 11.7, hematocrit 33.9, platelet count 187, 81% neutrophils, 5% lymphocytes. ESR is 39. Chemistry; sodium 137, potassium 2.8, chloride 103, bicarbonate 30, anion gap of 6.1, BUN 6, creatinine 0.4, GFR unavailable, glucose of 124, calcium is 9.1, total bili 3.2, AST is 46, ALT 97, alkaline phosphatase 235, total protein 5.2, albumin 2.3, globulin 2.9. MICROBIOLOGY: MRSA screen February 08 negative. Blood culture from February 10 shows no growth. Gallbladder culture from February 12 pending. ASSESSMENT: 1. Sepsis. 2. Leukocytosis. 3. Acute cholecystitis with cholelithiasis. 4. Cholangitis. 5. Hypokalemia. 7. Transaminitis. 8. Hypoalbuminemia. 9. Protein-calorie malnutrition (severe). 10. Status post laparoscopic cholecystectomy, status post ERCP for common bile duct stone. 11. Acute pancreatitis (resolved). 12. Hypertension. PLAN: Continue current medications and treatment. Obtain labs in the a.m. We will obtain repeat cultures regarding continued elevated white blood cell count. Further recommendations per consults. [facility]# [id number] [facility]
[2017-02-15] MEDS: D5-0.9%NS 1,000 ML IV SCH (06:57)
[2017-02-15 07:03] LABS: HEMOGLOBIN 11.2 gm/dL (11.7-16.1); MEAN CELL VOLUME 90.9 fl (81-100); MEAN CORPUSCULAR HEMOGLOBIN 31.8 pg (27.0-31.0); MEAN PLATELET VOLUME 9.8 fl; PLATELET COUNT 213 Th/cmm (150-400); RED BLOOD COUNT 3.52 Mil/cmm (3.80-5.20); WHITE BLOOD COUNT 9.8 Th/cmm (4.8-10.8)
[2017-02-15 07:16] LABS: ALB/GLOB RATIO 0.8 (1.0-1.8); ALKALINE PHOSPHATASE 212 U/L (34-104); ANION GAP 3.5 (7.0-16.0); BILIRUBIN,TOTAL 2.2 mg/dL (0.3-1.0); BUN - UREA NITROGEN 6 mg/dL (7-25); CALCIUM SERUM 8.6 mg/dL (8.6-10.3); CARBON DIOXIDE 31.8 mEq/L (21.0-31.0); CHLORIDE 106 mEq/L (98-107); CREATININE - SERUM 0.5 mg/dL (0.6-1.2); GLUCOSE 131 mg/dL (70-105); POTASSIUM SERUM 3.3 mEq/L (3.5-5.1); SGOT 33 U/L (13-39); SGPT/ALT 73 U/L (7-52); SODIUM SERUM 138 mEq/L (136-145)
--- NOTE | 2017-02-15 07:22 | General Progress Note ---
Subjective - Review of Systems Service Date: 02/15/17 Events since last encounter: Denies events, was advanced to a regular diet yesterday. No c/o diarrhea or abdominal pain this AM Objective - Results Result Diagrams: 02/15/17 06:36 02/15/17 06:36 Recent Labs: Laboratory Last Values WBC 9.8 Th/cmm (4.8-10.8) 02/15/17 06:36 RBC 3.52 Mil/cmm (3.80-5.20) L 02/15/17 06:36 Hgb 11.2 gm/dL (11.7-16.1) L 02/15/17 06:36 Hct 32.0 % (35.0-45.0) L 02/15/17 06:36 MCV 90.9 fl (81-100) 02/15/17 06:36 MCH 31.8 pg (27.0-31.0) H 02/15/17 06:36 MCHC Differential 35.0 pg (28.0-36.0) 02/15/17 06:36 RDW 12.0 % (11.5-20.0) 02/15/17 06:36 Plt Count 213 Th/cmm (150-400) 02/15/17 06:36 MPV 9.8 fl 02/15/17 06:36 Neutrophils % 79.7 % (40.0-80.0) 02/13/17 06:10 Lymphocytes % 9.2 % (20.0-50.0) L 02/13/17 06:10 Monocytes % 8.5 % (2.0-10.0) 02/13/17 06:10 Eosinophils % 2.1 % (0.0-5.0) 02/13/17 06:10 Basophils % 0.5 % (0.0-2.0) 02/13/17 06:10 Neutrophils (Manual) 81 % (40-80) H 02/14/17 06:37 Lymphocytes 5 % (20-50) L 02/14/17 06:37 Monocytes 9 % (2-10) 02/14/17 06:37 Eosinophils 5 % (0-5) 02/14/17 06:37 Platelet Estimate ADEQUATE (NORMAL) 02/14/17 06:37 Platelet Morphology NORMAL (NORMAL) 02/14/17 06:37 RBC Morph Micro Appear NORMAL (NORMAL) 02/14/17 06:37 ESR 39 mm/hr (0-30) H 02/14/17 06:37 PT 11.3 SECONDS (9.5-11.5) 02/11/17 05:36 INR 1.09 (0.5-1.4) 02/11/17 05:36 Sodium 137 mEq/L (136-145) 02/14/17 06:37 Potassium 2.8 mEq/L (3.5-5.1) L* 02/14/17 06:37 Chloride 103 mEq/L (98-107) 02/14/17 06:37 Carbon Dioxide 30.7 mEq/L (21.0-31.0) 02/14/17 06:37 Anion Gap 6.1 (7.0-16.0) L 02/14/17 06:37 BUN 6 mg/dL (7-25) L 02/14/17 06:37 Creatinine 0.4 mg/dL (0.6-1.2) L 02/14/17 06:37 Est GFR ( Amer) TNP 02/14/17 06:37 Est GFR (Non-Af Amer) TNP 02/14/17 06:37 BUN/Creatinine Ratio 15.0 02/14/17 06:37 Glucose 124 mg/dL (70-105) H 02/14/17 06:37 POC Glucose 158 MG/DL (70 - 105) H 02/08/17 21:26 Hemoglobin A1c % 5.2 % (4.0-6.0) 02/08/17 06:51 Calcium 9.1 mg/dL (8.6-10.3) 02/14/17 06:37 Magnesium 1.7 mg/dL (1.9-2.7) L 02/10/17 06:15 Total Bilirubin 3.2 mg/dL (0.3-1.0) H 02/14/17 06:37 AST 46 U/L (13-39) H 02/14/17 06:37 ALT 97 U/L (7-52) H 02/14/17 06:37 Alkaline Phosphatase 235 U/L (34-104) H 02/14/17 06:37 C-Reactive Protein 12.8 mg/dL (0.0-0.9) H 02/14/17 06:37 Total Protein 5.2 gm/dL (6.0-8.3) L 02/14/17 06:37 Albumin 2.3 gm/dL (3.7-5.3) L 02/14/17 06:37 Globulin 2.9 gm/dL 02/14/17 06:37 Albumin/Globulin Ratio 0.8 (1.0-1.8) L 02/14/17 06:37 Amylase 123 U/L (29-103) H 02/11/17 05:36 Lipase 72 U/L (11-82) 02/11/17 05:36 TSH 0.92 uIU/ml (0.34-5.60) 02/10/17 06:15 Urine Source CATH 02/08/17 08:30 Urine Color YELLOW 02/08/17 08:30 Urine Clarity SL. CLOUDY (CLEAR) 02/08/17 08:30 Urine pH 6.0 02/08/17 08:30 Ur Specific [place] (1.005-1.030) 02/08/17 08:30 Urine Protein 30 mg/dL (NEGATIVE) H 02/08/17 08:30 Urine Glucose (UA) NEGATIVE mg/dL (NEGATIVE) 02/08/17 08:30 Urine Ketones 15 mg/dL (NEGATIVE) H 02/08/17 08:30 Urine Blood SMALL (NEGATIVE) H 02/08/17 08:30 Urine Nitrate NEGATIVE (NEGATIVE) 02/08/17 08:30 Urine Bilirubin NEGATIVE (NEGATIVE) 02/08/17 08:30 Urine Urobilinogen 0.2 E.U./dL (0.2 - 1.0) 02/08/17 08:30 Ur Leukocyte Esterase NEGATIVE (NEGATIVE) 02/08/17 08:30 Urine RBC 0-2 /hpf (0-5) 02/08/17 08:30 Urine WBC 6-10 /hpf (0-5) H 02/08/17 08:30 Ur Epithelial Cells RARE /lpf (FEW) 02/08/17 08:30 Urine Bacteria OCCASIONAL /hpf (NONE SEEN) 02/08/17 08:30 Ur Random Potassium 22.0 mmol/L 02/14/17 09:25 - Physical Exam Vitals and I&O: Vital Signs Temp 97.6 F 02/15/17 04:00 Pulse 101 02/15/17 04:00 Resp 18 02/15/17 04:00 BP 128/77 02/15/17 04:00 Pulse Ox 94 02/15/17 04:00 Intake & Output 02/14/17 02/15/17 02/15/17 18:59 06:59 18:59 Intake Total 1700 1100 Output Total 180 Balance 1520 1100 Intake: Intake, IV Amount 1100 1100 D5-0.9%Ns 1,000 ml @ 100 1000 1000 mls/hr IV .Q10H [facility] Rx#: [id number] Piperacillin Sodium/ 100 100 Tazobact 4.5 gm In Sodium Chloride 0.9% 100 ml @ 100 mls/hr IV Q8HR [facility] Rx #:[id number] Oral 600 Output: Drainage 180 Abdomen 180 Other: # Voids 3 Active Medications: Current Medications Acetaminophen (Tylenol 650mg Supp) 650 mg RC Q6H PRN PRN Reason: Mild Pain/Headache/T above 101 Stop: 04/09/17 06:24 Acetaminophen/Hydrocodone Bitart ([place] 10 Mg/325 Mg) 1 tab PO Q6H PRN PRN Reason: Pain (Severe) Stop: 04/14/17 11:52 Last Admin: 02/14/17 20:35 Dose: 1 tab Acetaminophen/Hydrocodone Bitart ([place] 5mg/325mg) 1 tab PO Q6H PRN PRN Reason: Moderate Pain Stop: 04/14/17 11:52 Last Admin: 02/14/17 13:53 Dose: 1 tab Amlodipine Besylate (Norvasc) 10 mg PO DAILY [facility] Stop: 04/11/17 16:59 Last Admin: 02/14/17 08:37 Dose: 10 mg Dextrose/Sodium Chloride (D5-0.9%Ns) 1,000 mls @ 100 mls/hr IV .Q10H [facility] Stop: 04/09/17 06:29 Last Admin: 02/15/17 06:57 Dose: 100 mls/hr Potassium Chloride (Potassium Chloride) 40 meq in 200 mls @ 50 mls/hr IV 1015 [facility] Stop: 02/15/17 14:14 Last Admin: 02/14/17 10:31 Dose: 50 mls/hr Piperacillin Sod/Tazobactam (Sod 4.5 gm/ Sodium Chloride) 100 mls @ 100 mls/hr IV Q8HR [facility] Stop: 04/15/17 12:59 Last Admin: 02/15/17 04:39 Dose: 100 mls/hr Lorazepam (Ativan) 1 mg IVP Q4H PRN; Protocol PRN Reason: Anxiety/Agitation Stop: 04/09/17 06:24 Last Admin: 02/11/17 02:54 Dose: 1 mg Losartan Potassium (Cozaar) 25 mg PO DAILY [facility] Stop: 04/14/17 08:59 Last Admin: 02/14/17 08:38 Dose: 25 mg Metoprolol Tartrate (Lopressor) 25 mg PO BID [facility] Stop: 04/11/17 08:59 Last Admin: 02/14/17 16:37 Dose: Not Given Morphine Sulfate (Morphine) 2 mg IVP Q4H PRN PRN Reason: Pain (Severe) Stop: 04/09/17 06:24 Last Admin: 02/14/17 04:35 Dose: 2 mg Ondansetron HCl (Zofran) 4 mg IVP Q6H PRN PRN Reason: Nausea / Vomiting Stop: 04/09/17 06:24 Potassium Chloride (Klor-Con) 40 meq PO DAILY [facility] Stop: 04/15/17 08:59 Last Admin: 02/14/17 08:37 Dose: 40 meq General: Alert HEENT: Atraumatic Neck: Supple Cardiovascular: Regular rate Lungs: Clear to auscultation Abdomen: Other (surgical scars in place, clean/dry/intact) Extremities: Edema (no edema) - Procedures Procedures: Procedures Procedure Code Date ERCP REMOVE DUCT CALCULI 71310 02/08/17 EXTIRPATION OF MATTER FROM COMMON BILE DUCT, ENDO [id number] 02/08/17 LAPAROSCOPIC CHOLECYSTECTOMY 03755 02/08/17 RESECTION OF GALLBLADDER, PERCUTANEOUS ENDOSCOPIC APPROACH [id number] 02/08/17 Assessment/Plan - Assessment Assessment: Hypokalemia Status post cholecystectomy with ERCP Sepsis secondary to abdominal etiology Leukocytosis - Plan Plan: Urine osm and serum osm are pending but urine K is low, indicating that hypokalemia is from gastric losses Aggressively replace K, increase to 60meq PO daily BP controlled so would leave losartan at current dose No contraindication to discharge from renal perspective as long as pt can tolerate diet and K supplementation Nutritional Asmnt/Malnutr-PDOC - Dietary Evaluation Malnutrition Findings (Please click <Entered> for more info): Nutritional Asmnt/Malnutrition Start: 02/13/17 17: 05 Text: Status: Complete Freq: Document 02/13/17 17:05 [facility] (Rec: 02/13/17 17:22 [facility] [id number]) Nutritional Asmnt/Malnutrition Patient General Information Nutritional Screening Diagnosis Diagnosis Systemic inflammatory response syndrome, acute cholecystitis Pertinent Medical Hx/Surgical Hx No PMH or PSH. Subjective Information Pt is a 76-year-old female admitted with chief complaint of abdominal pain for 2 days associated with nausea and vomiting. S/P ERCP with sphincterotomy and removal of stones (02/11) and laparoscopic cholecystectomy (02/12). Pt is currently tolerating clear liquid diet with no nausea or vomiting. and son at bedside. Pt speaks Hungarian but mostly [place]. Son at bedside to translate and answer questions. Pt lost 1# in the last few weeks. Wt of 136#/61.7 kg measured at [place] on 02/07. Pt appears well nourished with no signs of muscle or fat depletion. Current Diet Order/ Nutrition Support Clear liquid Patient / S.O Can Pertinent Medications D5-0.9 NS, Cozaar, Morphine, Zosyn, KCl, Klor-Con Pertinent Labs (02/11) Amylase 123H (02/13) Glucose 139H (pt receiving D5 infusion), Total Bilirubin 3.6H (decreased), AST 79H and ALT 137H ( decreased), Alkaline Phosphatase 298H (decreased) Nutritional Hx/Data Height 1.65 m Height (Calculated Centimeters) 165.1 Current Weight (lbs) 61.689 kg Weight (Calculated Kilograms) 61.7 Weight (Calculated Grams) 26502.6 Usual body Weight (lbs) 137 % Usual Body Weight 99 [place] Body Weight 125 % [place] Body Weight 109 Recent Weight Change Yes Weight Status Approriate GI Symptoms GI Symptoms None Food Allergies No Cultural/Ethnic/Caodaism Belief [place] ethnic background. Son reports pt does not prepare foods with lard but uses extra virgin olive oil when cooking and eating. Usual diet at home Regular Skin Integrity/Comment: Bhavin 21. No skin breakdown. Current %PO Good (75-100%) Estimated Nutritional Goals BEE in Kcals: Using Current wt Calories/Kcals/Kg Based on CBW 61.7 kg Kcals Calculated 9134-4274 kcals/day (25-30 kcals/kg) Protein: Using Current wt Protein g/kg: Based on CBW 61.7 kg with consideration of age s/p surgery Protein Calculated 62-74 gm/day (1-1.2 gm/kg) Fluid: ml 3590-9629 ml/day (30-35 ml/kg) Nutritional Problem 1. Problem Problem Inadequate energy and protein intake related to Etiology possible altered GI function s /p laparoscopic cholecystectomy as evidenced by Signs/Symptoms: clear liquid diet is not adequate to meet estimated nutritional needs. Malnutrition Alert Is there a minimum of two criteria No selected? Query Text:Check all the applicable criteria. A minimum of two criteria are recommended for diagnosis of either severe or non-severe malnutrition. Malnutrition Related to Morbid Obesity Malnutrition related to morbid obesity No Intervention/Recommendation Recommendations by RD Dietary Education by RD1 Increase Calorie Intake Comments 1. Recommend advance to full liquid diet, as tolerated. RD discussed with Dr. Gillette and MD agreed. Pt and family informed. 2. Advance as tolerated to goal diet of soft/bland, low fat diet. 3. Educated pt, , and son on progression of liquid diet, low fat diet, low fiber diet with slow advancement to high fiber diet as tolerated. Son and pt verbalized understanding. Handouts in Hungarian and [place] also provided. Expected Outcomes/Goals Expected Outcomes/Goals Have pt meet at least 75% of estimated nutritional needs with acceptable tolerance. Physician Parameters for PEM Normal Weight % 90% - 110% (Normal) Body Mass Index (BMI) 19 - 24 (Normal) Serum Albumin (g/dl) 2.4 - 3.0 (Moderate) 02/13/17 17:21 Dietitian Notes by Shadia Patel Nutrition Note Initial Nutrition Assessment completed by Shadia Patel on 02/13/17. Please refer to nutrition assessment under Patient Care tab of EMR. Nutrition Interventions: 1. Recommend advance to full liquid diet, as tolerated. RD discussed with Dr. Gillette and agreed. Pt and family informed diet is advanced for dinner tonight. 2. Advance as tolerated to goal diet of soft/bland, low fat diet. 3. Educated pt, , and son on progression of liquid diet, low fat diet, low fiber diet with slow advancement to high fiber diet as tolerated. Son and pt verbalized understanding. Handouts in Hungarian and [place] also provided. Initialized on 02/13/17 17:21 - END OF NOTE
[2017-02-15] MEDS ORDERED: Potassium Chloride 20 mEq ER Tab PO SCH (07:26)
[2017-02-15 08:04] LABS: TOTAL CELLS COUNTED 100
[2017-02-15 08:05] LABS: EOSINOPHIL 7 % (0-5); NEUTROPHILS 74 % (40-80); PLATELET ESTIMATE ADEQUATE (NORMAL); PLATELET MORPHOLOGY NORMAL (NORMAL)
[2017-02-15] MEDS: Hydrocodone/APAP 5mg/325mg Tab PO PRN (08:35)
[2017-02-15] MEDS: KCL 20mEq/100mL Premix 40 MEQ/200 ML PIGGYBACK IV SCH (10:35)
--- NOTE | 2017-02-15 13:08 | General Progress Note ---
Subjective - Review of Systems Service Date: 02/15/17 Events since last encounter: mminimal FUENTES drainage, removed may DC discussed with Dr. Gillette to my office 3 Objective - Results Result Diagrams: 02/15/17 06:36 02/15/17 06:36 Recent Labs: Laboratory Last Values WBC 9.8 Th/cmm (4.8-10.8) 02/15/17 06:36 RBC 3.52 Mil/cmm (3.80-5.20) L 02/15/17 06:36 Hgb 11.2 gm/dL (11.7-16.1) L 02/15/17 06:36 Hct 32.0 % (35.0-45.0) L 02/15/17 06:36 MCV 90.9 fl (81-100) 02/15/17 06:36 MCH 31.8 pg (27.0-31.0) H 02/15/17 06:36 MCHC Differential 35.0 pg (28.0-36.0) 02/15/17 06:36 RDW 12.0 % (11.5-20.0) 02/15/17 06:36 Plt Count 213 Th/cmm (150-400) 02/15/17 06:36 MPV 9.8 fl 02/15/17 06:36 Neutrophils % 79.7 % (40.0-80.0) 02/13/17 06:10 Lymphocytes % 9.2 % (20.0-50.0) L 02/13/17 06:10 Monocytes % 8.5 % (2.0-10.0) 02/13/17 06:10 Eosinophils % 2.1 % (0.0-5.0) 02/13/17 06:10 Basophils % 0.5 % (0.0-2.0) 02/13/17 06:10 Neutrophils (Manual) 74 % (40-80) 02/15/17 06:36 Lymphocytes 10 % (20-50) L 02/15/17 06:36 Monocytes 9 % (2-10) 02/15/17 06:36 Eosinophils 7 % (0-5) H 02/15/17 06:36 Platelet Estimate ADEQUATE (NORMAL) 02/15/17 06:36 Platelet Morphology NORMAL (NORMAL) 02/15/17 06:36 RBC Morph Micro Appear NORMAL (NORMAL) 02/15/17 06:36 ESR 41 mm/hr (0-30) H 02/15/17 06:36 PT 11.3 SECONDS (9.5-11.5) 02/11/17 05:36 INR 1.09 (0.5-1.4) 02/11/17 05:36 Sodium 138 mEq/L (136-145) 02/15/17 06:36 Potassium 3.3 mEq/L (3.5-5.1) L 02/15/17 06:36 Chloride 106 mEq/L (98-107) 02/15/17 06:36 Carbon Dioxide 31.8 mEq/L (21.0-31.0) H 02/15/17 06:36 Anion Gap 3.5 (7.0-16.0) L 02/15/17 06:36 BUN 6 mg/dL (7-25) L 02/15/17 06:36 Creatinine 0.5 mg/dL (0.6-1.2) L 02/15/17 06:36 Est GFR ( Amer) TNP 02/15/17 06:36 Est GFR (Non-Af Amer) TNP 02/15/17 06:36 BUN/Creatinine Ratio 12.0 02/15/17 06:36 Glucose 131 mg/dL (70-105) H 02/15/17 06:36 POC Glucose 158 MG/DL (70 - 105) H 02/08/17 21:26 Hemoglobin A1c % 5.2 % (4.0-6.0) 02/08/17 06:51 Calcium 8.6 mg/dL (8.6-10.3) 02/15/17 06:36 Magnesium 1.7 mg/dL (1.9-2.7) L 02/10/17 06:15 Total Bilirubin 2.2 mg/dL (0.3-1.0) H 02/15/17 06:36 AST 33 U/L (13-39) 02/15/17 06:36 ALT 73 U/L (7-52) H 02/15/17 06:36 Alkaline Phosphatase 212 U/L (34-104) H 02/15/17 06:36 C-Reactive Protein 12.8 mg/dL (0.0-0.9) H 02/14/17 06:37 Total Protein 5.0 gm/dL (6.0-8.3) L 02/15/17 06:36 Albumin 2.2 gm/dL (3.7-5.3) L 02/15/17 06:36 Globulin 2.8 gm/dL 02/15/17 06:36 Albumin/Globulin Ratio 0.8 (1.0-1.8) L 02/15/17 06:36 Amylase 123 U/L (29-103) H 02/11/17 05:36 Lipase 72 U/L (11-82) 02/11/17 05:36 TSH 0.92 uIU/ml (0.34-5.60) 02/10/17 06:15 Urine Source CATH 02/08/17 08:30 Urine Color YELLOW 02/08/17 08:30 Urine Clarity SL. CLOUDY (CLEAR) 02/08/17 08:30 Urine pH 6.0 02/08/17 08:30 Ur Specific [place] (1.005-1.030) 02/08/17 08:30 Urine Protein 30 mg/dL (NEGATIVE) H 02/08/17 08:30 Urine Glucose (UA) NEGATIVE mg/dL (NEGATIVE) 02/08/17 08:30 Urine Ketones 15 mg/dL (NEGATIVE) H 02/08/17 08:30 Urine Blood SMALL (NEGATIVE) H 02/08/17 08:30 Urine Nitrate NEGATIVE (NEGATIVE) 02/08/17 08:30 Urine Bilirubin NEGATIVE (NEGATIVE) 02/08/17 08:30 Urine Urobilinogen 0.2 E.U./dL (0.2 - 1.0) 02/08/17 08:30 Ur Leukocyte Esterase NEGATIVE (NEGATIVE) 02/08/17 08:30 Urine RBC 0-2 /hpf (0-5) 02/08/17 08:30 Urine WBC 6-10 /hpf (0-5) H 02/08/17 08:30 Ur Epithelial Cells RARE /lpf (FEW) 02/08/17 08:30 Urine Bacteria OCCASIONAL /hpf (NONE SEEN) 02/08/17 08:30 Ur Random Potassium 22.0 mmol/L 02/14/17 09:25 - Physical Exam Vitals and I&O: Vital Signs Temp 98.1 F 02/15/17 08:00 Pulse 111 02/15/17 08:31 Resp 18 02/15/17 08:00 BP 141/79 02/15/17 08:31 Pulse Ox 93 02/15/17 08:00 Intake & Output 02/14/17 02/15/17 02/15/17 18:59 06:59 18:59 Intake Total 1700 1100 Output Total 180 Balance 1520 1100 Intake: Intake, IV Amount 1100 1100 D5-0.9%Ns 1,000 ml @ 100 1000 1000 mls/hr IV .Q10H [facility] Rx#: [id number] Piperacillin Sodium/ 100 100 Tazobact 4.5 gm In Sodium Chloride 0.9% 100 ml @ 100 mls/hr IV Q8HR [facility] Rx #:[id number] Oral 600 Output: Drainage 180 Abdomen 180 Other: # Voids 3 Stool Characteristics Soft Formed Active Medications: Current Medications Acetaminophen (Tylenol 650mg Supp) 650 mg RC Q6H PRN PRN Reason: Mild Pain/Headache/T above 101 Stop: 04/09/17 06:24 Acetaminophen/Hydrocodone Bitart ([place] 10 Mg/325 Mg) 1 tab PO Q6H PRN PRN Reason: Pain (Severe) Stop: 04/14/17 11:52 Last Admin: 02/14/17 20:35 Dose: 1 tab Acetaminophen/Hydrocodone Bitart ([place] 5mg/325mg) 1 tab PO Q6H PRN PRN Reason: Moderate Pain Stop: 04/14/17 11:52 Last Admin: 02/15/17 08:35 Dose: 1 tab Amlodipine Besylate (Norvasc) 10 mg PO DAILY [facility] Stop: 04/11/17 16:59 Last Admin: 02/15/17 08:31 Dose: 10 mg Dextrose/Sodium Chloride (D5-0.9%Ns) 1,000 mls @ 100 mls/hr IV .Q10H [facility] Stop: 04/09/17 06:29 Last Admin: 02/15/17 06:57 Dose: 100 mls/hr Potassium Chloride (Potassium Chloride) 40 meq in 200 mls @ 50 mls/hr IV 1015 [facility] Stop: 02/15/17 14:14 Last Admin: 02/15/17 10:35 Dose: Not Given Piperacillin Sod/Tazobactam (Sod 4.5 gm/ Sodium Chloride) 100 mls @ 100 mls/hr IV Q8HR [facility] Stop: 04/15/17 12:59 Last Admin: 02/15/17 04:39 Dose: 100 mls/hr Lorazepam (Ativan) 1 mg IVP Q4H PRN; Protocol PRN Reason: Anxiety/Agitation Stop: 04/09/17 06:24 Last Admin: 02/11/17 02:54 Dose: 1 mg Losartan Potassium (Cozaar) 25 mg PO DAILY [facility] Stop: 04/14/17 08:59 Last Admin: 02/15/17 08:29 Dose: 25 mg Metoprolol Tartrate (Lopressor) 25 mg PO BID [facility] Stop: 04/11/17 08:59 Last Admin: 02/15/17 08:31 Dose: 25 mg Morphine Sulfate (Morphine) 2 mg IVP Q4H PRN PRN Reason: Pain (Severe) Stop: 04/09/17 06:24 Last Admin: 02/14/17 04:35 Dose: 2 mg Ondansetron HCl (Zofran) 4 mg IVP Q6H PRN PRN Reason: Nausea / Vomiting Stop: 04/09/17 06:24 Potassium Chloride (Klor-Con) 60 meq PO DAILY [facility] Stop: 04/16/17 07:25 Last Admin: 02/15/17 08:30 Dose: 60 meq - Procedures Procedures: Procedures Procedure Code Date ERCP REMOVE DUCT CALCULI 60559 02/08/17 EXTIRPATION OF MATTER FROM COMMON BILE DUCT, ENDO [id number] 02/08/17 LAPAROSCOPIC CHOLECYSTECTOMY 13182 02/08/17 RESECTION OF GALLBLADDER, PERCUTANEOUS ENDOSCOPIC APPROACH [id number] 02/08/17 Nutritional Asmnt/Malnutr-PDOC - Dietary Evaluation Malnutrition Findings (Please click <Entered> for more info): Nutritional Asmnt/Malnutrition Start: 02/13/17 17: 05 Text: Status: Complete Freq: Document 02/13/17 17:05 [facility] (Rec: 02/13/17 17:22 [facility] [id number]) Nutritional Asmnt/Malnutrition Patient General Information Nutritional Screening Diagnosis Diagnosis Systemic inflammatory response syndrome, acute cholecystitis Pertinent Medical Hx/Surgical Hx No PMH or PSH. Subjective Information Pt is a 76-year-old female admitted with chief complaint of abdominal pain for 2 days associated with nausea and vomiting. S/P ERCP with sphincterotomy and removal of stones (02/11) and laparoscopic cholecystectomy (02/12). Pt is currently tolerating clear liquid diet with no nausea or vomiting. and son at bedside. Pt speaks Portuguese but mostly [place]. Son at bedside to translate and answer questions. Pt lost 1# in the last few weeks. Wt of 136#/61.7 kg measured at [place] on 02/07. Pt appears well nourished with no signs of muscle or fat depletion. Current Diet Order/ Nutrition Support Clear liquid Patient / S.O Can Pertinent Medications D5-0.9 NS, Cozaar, Morphine, Zosyn, KCl, Klor-Con Pertinent Labs (02/11) Amylase 123H (02/13) Glucose 139H (pt receiving D5 infusion), Total Bilirubin 3.6H (decreased), AST 79H and ALT 137H ( decreased), Alkaline Phosphatase 298H (decreased) Nutritional Hx/Data Height 1.65 m Height (Calculated Centimeters) 165.1 Current Weight (lbs) 61.689 kg Weight (Calculated Kilograms) 61.7 Weight (Calculated Grams) 04768.6 Usual body Weight (lbs) 137 % Usual Body Weight 99 [place] Body Weight 125 % [place] Body Weight 109 Recent Weight Change Yes Weight Status Approriate GI Symptoms GI Symptoms None Food Allergies No Cultural/Ethnic/[place] Belief [place] ethnic background. Son reports pt does not prepare foods with lard but uses extra virgin olive oil when cooking and eating. Usual diet at home Regular Skin Integrity/Comment: Bhavin Baljeet. No skin breakdown. Current %PO Good (75-100%) Estimated Nutritional Goals BEE in Kcals: Using Current wt Calories/Kcals/Kg Based on CBW 61.7 kg Kcals Calculated 5315-9883 kcals/day (25-30 kcals/kg) Protein: Using Current wt Protein g/kg: Based on CBW 61.7 kg with consideration of age s/p surgery Protein Calculated 62-74 gm/day (1-1.2 gm/kg) Fluid: ml 5292-8610 ml/day (30-35 ml/kg) Nutritional Problem 1. Problem Problem Inadequate energy and protein intake related to Etiology possible altered GI function s /p laparoscopic cholecystectomy as evidenced by Signs/Symptoms: clear liquid diet is not adequate to meet estimated nutritional needs. Malnutrition Alert Is there a minimum of two criteria No selected? Query Text:Check all the applicable criteria. A minimum of two criteria are recommended for diagnosis of either severe or non-severe malnutrition. Malnutrition Related to Morbid Obesity Malnutrition related to morbid obesity No Intervention/Recommendation Recommendations by RD Dietary Education by RD1 Increase Calorie Intake Comments 1. Recommend advance to full liquid diet, as tolerated. RD discussed with Dr. Gillette and agreed. Pt and family informed. 2. Advance as tolerated to goal diet of soft/bland, low fat diet. 3. Educated pt, , and son on progression of liquid diet, low fat diet, low fiber diet with slow advancement to high fiber diet as tolerated. Son and pt verbalized understanding. Handouts in Portuguese and [place] also provided. Expected Outcomes/Goals Expected Outcomes/Goals Have pt meet at least 75% of estimated nutritional needs with acceptable tolerance. Physician Parameters for PEM Normal Weight % 90% - 110% (Normal) Body Mass Index (BMI) 19 - 24 (Normal) Serum Albumin (g/dl) 2.4 - 3.0 (Moderate) 02/13/17 17:21 Dietitian Notes by Shadia Patel Nutrition Note Initial Nutrition Assessment completed by Shadia Patel on 02/13/17. Please refer to nutrition assessment under Patient Care tab of EMR. Nutrition Interventions: 1. Recommend advance to full liquid diet, as tolerated. RD discussed with Dr. Gillette and agreed. Pt and family informed diet is advanced for dinner tonight. 2. Advance as tolerated to goal diet of soft/bland, low fat diet. 3. Educated pt, , and son on progression of liquid diet, low fat diet, low fiber diet with slow advancement to high fiber diet as tolerated. Son and pt verbalized understanding. Handouts in Portuguese and [place] also provided. Initialized on 02/13/17 17:21 - END OF NOTE
--- NOTE | 2017-02-15 23:28 | Discharge Summary ---
DISCHARGE DIAGNOSES: 1. Sepsis. 2. Leukocytosis. 3. Acute cholecystitis. 4. Cholelithiasis. 5. Cholangitis. 6. Hypokalemia. 7. Transaminitis. 8. Hypoalbuminemia. 10. Status post cholecystectomy. 11. Status post endoscopic retrograde cholangiopancreatography for common bile duct stone. 12. Acute pancreatitis, resolved. 13. Hypertension. HOSPITAL COURSE: The patient is a 76-year-old female, who presented to the [facility] ER for abdominal pain. The patient was transferred from [facility] to [facility]. The patient was admitted to medical/surgical unit. Consultations obtained; GI consultation was obtained from Dr. Gildardo Tai, who recommended the patient required MRCP and possible ERCP. General Surgery consultation was obtained from Dr. Braun, who recommended the patient will require MRCP, ERCP, and then a possible laparoscopic cholecystectomy. General Surgery consultation was obtained from Dr. Dave Morales, who recommended the patient to be placed on empiric coverage with Zosyn. Results of kent cultures have been negative. The patient had MRCP done on 02/09/2017 which shows gallbladder with numerous stones and also common bile duct stone. The patient underwent ERCP on 02/11/2017. The patient underwent laparoscopic cholecystectomy on 02/12/2017. During the hospital course, the patient also had hyperkalemia. The patient has been receiving IV along with p.o. potassium replacement. The patient has been cleared by General Surgery for discharge. The patient has been cleared by GI for discharge. The patient's case was discussed with Infectious Disease and recommendation for Levaquin and Flagyl for 5 more days. The patient will also be given prescription for p.o. potassium. JOB# [id number] [facility]
--- NOTE | 2017-02-16 07:36 | Progress Notes ---
SUBJECTIVE: The patient is awake and alert. The patient is on IV antibiotics. The patient is on IV fluids. The patient has drainage present. OBJECTIVE: VITAL SIGNS: Pulse 111, blood pressure 141/79, and respiratory rate 18. The patient is on room air. CARDIOVASCULAR: S1 and S2. RESPIRATORY: Clear. GASTROINTESTINAL: Soft. Positive bowel sounds. LABORATORY DATA: Hematology: WBC is 9.8, hemoglobin 11.2, hematocrit 32.0, platelet count of 213, 10% lymphocytes, and 7% eosinophils. ESR is 41. Chemistry: Sodium 138, potassium 3.3, chloride 106, bicarb 31, anion gap 3.5, BUN 6, creatinine 0.5. GFR unavailable. Glucose 131. Calcium 8.6. Total bili 2.2, AST 33, ALT 73, alk phos 212, total protein 5.0, albumin 2.2, and globulin 2.8. MICROBIOLOGY: MRSA screen from February 08 negative. Blood culture from February 10 negative. Gallbladder culture from February 12 shows no growth. ASSESSMENT: 1. Sepsis. 2. Leukocytosis. 3. Acute cholecystitis. 4. Cholelithiasis. 5. Cholangitis. 6. Hypokalemia. 7. Transaminitis. 8. Hypoalbuminemia. 9. Protein-calorie malnutrition (severe). 10. Status post laparoscopic cholecystectomy, status post ERCP. 11. Common bile duct stone. 12. Acute pancreatitis (resolved). 13. Hypertension. PLAN: Continue current medication and treatment. Further recommendations per consultation. etl manager for discharge planning. JOB# [id number]
--- NOTE | 2017-02-16 13:43 | Consultation ---
REFERRING PHYSICIAN: Dr. Monty Gillette. REASON FOR CONSULTATION: Abdominal pain and gallstones. Thank you for referring this patient to me. HISTORY OF PRESENT ILLNESS: This is a 76-year-old female was transferred from [facility]. She presented with a 2-day history of abdominal pain, nausea and vomiting. She has history of hyperglycemia, UTI and transaminitis. LABORATORY STUDIES: Showed gallstones on ultrasound as well as on MRCP, multiple common duct stones. The patient is to undergo ERCP by Dr. Bernal. When done, we will recommend appropriate treatment, which would include laparoscopic versus open cholecystectomy. JOB# [id number] [facility]
--- NOTE | 2017-02-16 15:24 | Pathology Report ---
[id number] Collection Date: 02/12/2017 Surgeon: Dr. Tatum Braun Specimen Description: Gallbladder Gross Description: Received in formalin is a distended gallbladder measuring 9 x 3 x 2.5 cm with a smooth, [place] outer surface. Opening the gallbladder reveals numerous martin-brown gallstones ranging from 0.2 to 0.4 cm in greatest dimension. The gallbladder mucosa has a slightly eroded appearance, and the gallbladder wall ranges from 0.2 to 0.5 cm in thickness. [employer] sections are submitted in one cassette. Gross Pathologic Diagnosis: Cholelithiasis, gallbladder. Microscopic Description: The histologic sections show gallbladder wall and mucosa with superficial ulceration and chronic inflammation consisting of increased numbers of lymphocytes and plasma cells. There is also fibrosis and thickening of the wall of the gallbladder. Diagnosis: Chronic cholecystitis, gallbladder. [facility]# [id number] MTDD
--- NOTE | 2017-02-25 12:15 | Consultation ---
INPATIENT NEPHROLOGY CONSULTATION REASON FOR CONSULTATION: Hypokalemia. HISTORY OF PRESENT ILLNESS: The patient is a very pleasant 76-year-old woman with a history of hypertension who was initially transferred from [facility] for complaints of abdominal pain, is now status post cholecystectomy as well as ERCP by General Surgery approximately 3 days prior to evaluation. On examination, patient denies complaints. No nausea, vomiting. She had a surgical drain in place, but was removed about a day ago by Dr. Braun. Otherwise, no previous history of kidney problems. Renal was consulted for hypokalemia at this admission. REVIEW OF SYSTEMS: Denies fevers, chills, nausea, vomiting, chest pain, shortness of breath, abdominal pain. Otherwise, 14-point review of systems is negative except as noted above. MEDICATIONS: As an inpatient include losartan 25 p.o. daily, metoprolol 25 p.o. b.i.d., Zosyn 4.5 grams q. 8 hours IV, potassium chloride oral repletion 40 mEq p.o. daily, and amlodipine 10 mg p.o. daily, as well as D5 NS 100 mL an hour. ALLERGIES: No known drug allergies. PAST MEDICAL HISTORY: As per above. PAST SURGICAL HISTORY: Cholecystectomy, ERCP. FAMILY HISTORY: Noncontributory, although remote diabetes is endorsed. SOCIAL HISTORY: No smoking, alcohol or drug use endorsed. Otherwise, no current history of smoking. OBJECTIVE EXAMINATION: VITAL SIGNS: Temperature 36, blood pressure 144/79, pulse 79, respirations 18. GENERAL APPEARANCE: Well-developed, well-nourished woman in no apparent distress, alert, oriented x 3. LUNGS: Clear to auscultation bilaterally. CARDIAC: Regular rate. Normal rhythm. No murmurs or gallops. ABDOMEN: Nondistended, nontender. EXTREMITIES: Trace edema, 1+ pulses distally, and to the above. DIAGNOSTIC DATA: As of 02/14/2017, white count 12.1, hemoglobin 11.7, platelets 187. Chemistry: Sodium 137, K 2.8, chloride 103, CO2 of 30, BUN 6, creatinine 0.4. AST 46, ALT 97, total bilirubin is 3.2. Amylase 123, and lipase 72. ASSESSMENT AND RECOMMENDATIONS: 1. Hypokalemia. We will clarify whether this is renal or GI etiology at this time with a TTKG. Given recent abdominal surgery with drain, do suspect this is a gastrointestinal source and that such repletion will be needed, but we will follow up on the TTKG pending urine osmolality, potassium and serum osmolality will be obtained today. The patient does have hypertension; however, as she is not requiring significant antihypertensive control hyperaldosteronism is less likely ; however, she will need to be off blood pressure medications and urine aldosterone will need to be sent for proper assessment. Regardless, suspect GI etiology of hypokalemia and we will follow up on TTKG above. 2. Status post cholecystectomy with ERCP. Management per surgery. Drain has been removed. 3. Hypertension, remains on three agents actually, see above. The patient may benefit from renin and aldosterone hormonal testing as an outpatient. Thank you Dr. Gillette for allowing us to be involved in the care of this patient. We will continue to follow along with you. [facility]# [id number] MTDTyler
--- NOTE | 2017-03-05 12:20 | Cardiology ---
PROCEDURE: Echocardiogram. REFERRING PHYSICIAN: Monty Gillette M.D. The M-mode measurements are as follows. Aortic root dimension in end-diastole is 2.3 cm. Aortic valve systolic separation is 1.6 cm and left atrial dimension in end-systole is 3.5 cm. EP septal separation is 0.53 cm. Mitral valve E/A ratio is 0.81. The left ventricular dimension in end-diastole is 3.6 cm and in end-systole 2.5 cm with ejection fraction between 55-60%. Interventricular septal thickness in end-diastole is 1.3 cm and LV posterior wall thickness in end-diastole is 1.0 cm. Doppler and color Doppler show that there is mild tricuspid regurgitation. The tricuspid Vmax is 2.54 m/sec. Aortic valve Vmax is 1.36 m/sec and aortic valve pressure gradient is 10.4 mmHg. Aortic valve area is 2.58 cm2. Right ventricular systolic pressure is 35.9 mmHg. Left ventricular outflow tract Vmax is 1.2 m/sec. M-mode and 2D show that LV dimension and wall motion are normal. No pericardial effusion is present. Interventricular septum looks likely asymmetrically hypertrophied. All the chambers are normal in dimension. The aortic valve is sclerotic with adequate function. Mitral valve annulus is calcified. Mitral valve leaflets are slightly sclerotic. Doppler and color Doppler findings as mentioned above. CONCLUSION: 1. LV dimension and second wall motion are normal. Ejection fraction is between 55 and 60%. 2. Interventricular septum is asymmetrically hypertrophied. 3. Aortic valve is calcified without any stenosis. 4. Mitral valve annulus is calcified with normal mitral valve function. There is mild tricuspid regurgitation present. 5. Mild pulmonary hypertension. 7. Otherwise normal study for the age. JOB# [id number] [facility]
== END 2017-02-15 15:34 | disposition home or self-care (01) | DRG 853 ==
LOC: MSI 00:57
PROVIDERS: ADMIT Preventive Medicine Preventive Medicine/Occupational Environmental Medicine; ATTEND Preventive Medicine Preventive Medicine/Occupational Environmental Medicine
PROC: 0FC98ZZ Extirpation of Matter from Common Bile Duct, Via Natural or Artificial Opening Endoscopic (ICD-10-PCS; principal; 2017-02-11)
PROC: BF101ZZ Fluoroscopy of Bile Ducts using Low Osmolar Contrast (ICD-10-PCS; 2017-02-11)
PROC: 0FT44ZZ Resection of Gallbladder, Percutaneous Endoscopic Approach (ICD-10-PCS; 2017-02-12)
DX: A41.9 Sepsis, unspecified organism (principal); E43 Unspecified severe protein-calorie malnutrition; J84.9 Interstitial pulmonary disease, unspecified; K80.42 Calculus of bile duct with acute cholecystitis without obstruction; K85.90 Acute pancreatitis without necrosis or infection, unspecified; N39.0 Urinary tract infection, site not specified; E88.09 Other disorders of plasma-protein metabolism, not elsewhere classified; K76.89 Other specified diseases of liver; E87.6 Hypokalemia; R73.9 Hyperglycemia, unspecified; I10 Essential (primary) hypertension; Z68.22 Body mass index [BMI] 22.0-22.9, adult
CPT/HCPCS: 36415-UA; 71010-TC; 74330-TC; 80053-TC; 81001-TC; 82150-TC; 82948-90; 83036-90; 83690-TC; 83735-TC; 83930-90; 83935-90; 84132-TC; 84133-TC; 84443-TC; 85007-TC; 85025-TC; 85027-TC; 85610-TC; 85652-TC; 86141-TC; 87070-90; 87075-90; 87086-90; 87205-90; 88304-TC; 90782; 90799; 93005; 94640; J1815; J2001; J2060; J2250; J2270; J2543; J2704; J2710; J3480; J7042; Q9967; X6024; X6258; Z7506; Z7508; Z7610; Z7610-TC